=== PATIENT | female | born 1945 | race Caucasian/White ===

== ENCOUNTER → 2020-02-16 12:36 | Outpatient (CLI) | payer OTHER, MEDICARE, SELFPAY ==
--- NOTE | 2020-02-16 12:38 | DI.US.S_ITS ---
PROCEDURE: US ABDOMEN COMPLETE INDICATIONS: abdominal discomfort/gas pain TECHNIQUE: Real-time scanning was performed of the abdominal and retroperitoneal organs, with image documentation. COMPARISON: None. FINDINGS: Liver: Liver is normal in size and homogeneous in echotexture. Gallbladder: No findings of gallstones or sludge are seen. The gallbladder wall is not thickened, measuring 3 mm or less. No specific pericholecystic fluid is seen. The sonographic Verdin sign is negative. Biliary ducts: Intrahepatic bile ducts are non-dilated. Extrahepatic bile duct caliber measures 3 mm. Normal is 6-7 mm or less in diameter, or 10 mm or less post-cholecystectomy. Pancreas: Not well seen. Spleen: Spleen is normal in size and homogeneous in echotexture. Kidneys: Kidneys are normal in size and echotexture. Right kidney measures 9.6 cm long; left kidney measures 9.6 cm long. No hydronephrosis or nephrolithiasis. No solid masses. Aorta: Visualized aorta is normal in caliber at less than 3 cm. Iliacs: Proximal common iliac arteries are normal in caliber at less than 2.5 cm. IVC: Intrahepatic inferior vena cava is patent. Miscellaneous: No free abdominal fluid. IMPRESSION: Normal ultrasound for age. The gallbladder demonstrates a normal sonographic appearance. No biliary dilatation is seen. Dictated by: Yung Enriquez M.D. on 02/16/2020 at 16:38 Approved by: Yung Enriquez M.D. on 02/16/2020 at 16:39
--- NOTE | 2020-02-16 12:38 | DI.RAD.S_ITS ---
PROCEDURE: XR DEXA AXIAL SKELETON INDICATIONS: menopausal, osteopenia COMPARISON: None. FINDINGS: This blank DEXA report has been sent in error by the PACS system. The correct and complete report will be forthcoming in 1-2 days. Thank you for your patience and understanding. Dictated by: Loretta Jarvis MD, PhD on 02/16/2020 at 17:10 Approved by: Loretta Jarvis MD, PhD on 02/16/2020 at 17:10
== END ==
PROVIDERS: PCP Nurse Practitioner; Referring Provider Nurse Practitioner; Visit Provider Nurse Practitioner
DX: M85.88 Other specified disorders of bone density and structure, other site (principal); Z78.0 Asymptomatic menopausal state; N95.8 Other specified menopausal and perimenopausal disorders; R14.1 Gas pain; R10.9 Unspecified abdominal pain
CPT/HCPCS: 76700; 77080

== ENCOUNTER → 2020-02-17 13:07 | Outpatient (CLI) | payer MEDICARE, OTHER, SELFPAY ==
[2020-02-20 08:11] LABS: Fecal Immunochemical Test Negative (Negative)
== END ==
PROVIDERS: PCP Nurse Practitioner; Referring Provider Nurse Practitioner; Visit Provider Nurse Practitioner
DX: Z12.11 Encounter for screening for malignant neoplasm of colon (principal); R14.1 Gas pain
CPT/HCPCS: 82274

== ENCOUNTER → 2020-03-01 12:44 | Outpatient (CLI) | payer MEDICARE, OTHER, SELFPAY | PROVIDERS: PCP Nurse Practitioner; Referring Provider Nurse Practitioner; Visit Provider Nurse Practitioner | DX: R14.0 Abdominal distension (gaseous) (principal); R14.2 Eructation; R19.8 Other specified symptoms and signs involving the digestive system and abdomen | CPT/HCPCS: 87177 ==

== ENCOUNTER → 2020-03-28 11:11 | Outpatient (CLI) | payer MEDICARE, OTHER, SELFPAY ==
[2020-03-28 13:02] LABS: COVID19 -Nasal RAPID POSITIVE (Negative)
== END ==
PROVIDERS: PCP Nurse Practitioner; Visit Provider Nurse Practitioner
DX: U07.1 COVID-19 (principal)
CPT/HCPCS: 87635

== ENCOUNTER → 2020-05-21 11:12 | Outpatient (CLI) | payer MEDICARE, OTHER, SELFPAY | PROVIDERS: PCP Nurse Practitioner; Referring Provider Nurse Practitioner; Visit Provider Nurse Practitioner | DX: Z12.31 Encounter for screening mammogram for malignant neoplasm of breast (principal); R14.1 Gas pain; Z53.9 Procedure and treatment not carried out, unspecified reason ==

== ENCOUNTER → 2020-05-23 10:51 | Outpatient (CLI) | payer MEDICARE, OTHER, SELFPAY ==
[2020-05-23 11:52] LABS: Alanine Aminotransferase 19 IU/L (<35); Albumin 4.3 g/dL (3.5-5.0); Albumin Globulin Ratio 1.5 (1.0-2.8); Alkaline Phosphatase 60 U/L (38-126); Aspartate Aminotransferase 21 IU/L (14-36); BUN Creatinine Ratio 33.3 (6-22); Bilirubin Total 0.6 mg/dL (0.2-1.3); Blood Urea Nitrogen 24 mg/dL (7-17); Calcium 10.3 mg/dL (8.4-10.2); Carbon Dioxide 31 mmol/L (22-32); Chloride 104 mmol/L (98-107); Estimated Glomerular Filt Rate > 60.0 mL/min (>60); Globulin 2.9 g/dL (1.7-4.1); Glucose 111 mg/dL (80-110); HEMOLYSIS < 15 (0-50); Potassium 4.5 mmol/L (3.4-5.1); Sodium 137 mmol/L (137-145); Total Protein 7.2 g/dL (6.3-8.2)
[2020-05-23 12:31] LABS: Thyroid Stimulating Hormone 1.15 uIU/mL (0.47-4.68)
== END ==
PROVIDERS: PCP Nurse Practitioner; Referring Provider Nurse Practitioner; Visit Provider Nurse Practitioner
DX: I10 Essential (primary) hypertension (principal); E06.3 Autoimmune thyroiditis; Z79.899 Other long term (current) drug therapy
CPT/HCPCS: 36415; 80053; 84443

== ENCOUNTER → 2020-05-29 14:43 | Outpatient (CLI) | payer OTHER, MEDICARE, SELFPAY ==
--- NOTE | 2020-05-29 14:45 | DI.US.S_ITS ---
PROCEDURE: US CAROTID DOPPLER BI INDICATIONS: BILATERAL CAROTID BRUITS TECHNIQUE: Color and pulse Doppler interrogation was performed of both carotid systems, with image documentation and velocity measurements. COMPARISON: None. FINDINGS: Stenosis calculations are based on SRU (Society of Radiologists in Ultrasound) criteria. Right side: Brachial blood pressure: 154/86 mm Hg. Common carotid artery peak systolic velocity: 100 cm/sec. Internal carotid artery peak systolic velocity: 137 cm/sec. Internal carotid artery end diastolic velocity: 40 cm/sec. External carotid artery peak systolic velocity: 216 cm/sec. ICA/CCA peak systolic ratio: 1.4 . Steve scale imaging description: Calcified plaque at the bifurcation Percent internal carotid artery stenosis: 50-69% . Vertebral artery: Flow direction is antegrade. Left side: Brachial blood pressure: 145/89 mm Hg. Common carotid artery peak systolic velocity: 100 cm/sec. Internal carotid artery peak systolic velocity: 87 cm/sec. Internal carotid artery end diastolic velocity: 25 cm/sec. External carotid artery peak systolic velocity: 107 cm/sec. ICA/CCA peak systolic ratio: 0.9 . Steve scale imaging description: Calcified plaque at the bifurcation Percent internal carotid artery stenosis: Less than 50% . Vertebral artery: Flow direction is antegrade. IMPRESSION: 50-69% right ICA stenosis Less than 50% left ICA stenosis Dictated by: Jose Whitlock M.D. on 05/29/2020 at 16:52 Approved by: Jose Whitlock M.D. on 05/29/2020 at 16:54
== END ==
PROVIDERS: PCP Nurse Practitioner; Referring Provider Nurse Practitioner; Visit Provider Nurse Practitioner
DX: I65.23 Occlusion and stenosis of bilateral carotid arteries (principal); R09.89 Other specified symptoms and signs involving the circulatory and respiratory systems
CPT/HCPCS: 93880

== ENCOUNTER → 2020-08-10 15:09 | Outpatient (CLI) | payer MEDICARE, OTHER, SELFPAY ==
--- NOTE | 2020-08-10 | DI.MG.S_ITS ---
BILATERAL DIGITAL SCREENING MAMMOGRAM 3D/2D WITH CAD: 08/10/2020 CLINICAL: Routine screening. Family history of breast cancer. Comparison is made to exams dated: 01/27/2019 mammogram, 12/08/2017 mammogram, and 10/23/2016 mammogram - outside location. The tissue of both breasts is predominantly fatty. Current study was also evaluated with a Computer Aided Detection (CAD) system. No significant masses, calcifications, or other findings are seen in either breast. There has been no significant interval change. IMPRESSION: NEGATIVE There is no mammographic evidence of malignancy. A 1 year screening mammogram is recommended. This exam was interpreted at Station ID: [id number]. NOTE: For mammograms, a report in lay terms will be sent to the patient. Approximately 15% of breast malignancies will not be visualized mammographically. In the management of a palpable breast mass, a negative mammogram must not discourage biopsy of a clinically suspicious lesion. Electronically Signed By: Crescencio young/stephani:08/13/2020 07:40:46 letter sent: Normal Exam ACR BI-RADS Category 1: Negative [id number]
== END ==
PROVIDERS: PCP Nurse Practitioner; Referring Provider Nurse Practitioner; Visit Provider Nurse Practitioner
DX: Z12.31 Encounter for screening mammogram for malignant neoplasm of breast (principal); Z80.3 Family history of malignant neoplasm of breast
CPT/HCPCS: 77063; 77067

== ENCOUNTER → 2020-09-28 10:03 | Outpatient (CLI) | payer MEDICARE, OTHER, SELFPAY ==
[2020-09-28 12:31] LABS: Alanine Aminotransferase 19 IU/L (<35); Albumin Globulin Ratio 1.5 (1.0-2.8); Alkaline Phosphatase 53 U/L (38-126); Aspartate Aminotransferase 25 IU/L (14-36); BUN Creatinine Ratio 34.6 (6-22); Bilirubin Total 0.7 mg/dL (0.2-1.3); Blood Urea Nitrogen 27 mg/dL (7-17); Calcium 10.2 mg/dL (8.4-10.2); Carbon Dioxide 26 mmol/L (22-32); Chloride 106 mmol/L (98-107); Cholesterol 194 mg/dL (140-199); Estimated Glomerular Filt Rate > 60.0 mL/min (>60); Globulin 2.6 g/dL (1.7-4.1); Glucose 100 mg/dL (80-110); HDL Cholesterol 89 mg/dL (40-60); HEMOLYSIS < 15 (0-50); LDL Cholesterol Calculated 92 mg/dL (<100); Potassium 4.7 mmol/L (3.4-5.1); Sodium 138 mmol/L (137-145); Total Protein 6.6 g/dL (6.3-8.2); Triglycerides 67 mg/dL (35-150)
== END ==
PROVIDERS: PCP Nurse Practitioner; Referring Provider Nurse Practitioner; Visit Provider Nurse Practitioner
DX: E78.5 Hyperlipidemia, unspecified (principal); I65.29 Occlusion and stenosis of unspecified carotid artery; Z79.899 Other long term (current) drug therapy
CPT/HCPCS: 36415; 80053; 80061

== ENCOUNTER → 2020-10-25 11:55 | Outpatient (CLI) | payer OTHER, MEDICARE, SELFPAY ==
--- NOTE | 2020-10-25 12:01 | DI.RAD.S_ITS ---
PROCEDURE: XR WRIST RT MIN 3V INDICATIONS: worsening wrist pain TECHNIQUE: 3 views of the wrist were acquired. COMPARISON: None. FINDINGS: Bones: No acute fracture. Severe 1st CMC and triscaphe joint degeneration. Scattered degenerative subchondral sclerosis and spurring. Soft tissues: No suspicious soft tissue calcifications. IMPRESSION: Right wrist osteoarthritis as above. No definite soft tissue abnormalities to correlate with the reported palpable mass. Consider further evaluation with contrast enhanced MRI as clinically necessary. Dictated by: Jose Whitlock M.D. on 10/25/2020 at 13:25 Approved by: Jose Whitlock M.D. on 10/25/2020 at 13:27
== END ==
PROVIDERS: PCP Nurse Practitioner; Referring Provider Nurse Practitioner; Visit Provider Nurse Practitioner
DX: M25.531 Pain in right wrist (principal); M19.031 Primary osteoarthritis, right wrist
CPT/HCPCS: 73110

== ENCOUNTER → 2020-11-05 13:20 | Outpatient (CLI) | payer OTHER, MEDICARE, SELFPAY ==
--- NOTE | 2020-11-05 13:21 | DI.MRI.S_ITS ---
PROCEDURE: MR WRIST RT WO CON INDICATIONS: Worsening wrist pain TECHNIQUE: Noncontrast coronal proton density fast spin echo and T2 fast spin echo with fat saturation; coronal 3-D gradient echo, axial T1 spin echo and T2 fast spin echo with fat saturation, sagittal T1 spin echo through the wrist. COMPARISON: None. FINDINGS: Image quality: Degraded by motion artifact. Bones and cartilage: There is diffuse carpal joint degeneration, subchondral cystic change and marrow edema. No evidence of avascular necrosis. No definite acute fracture is seen. Severe 1st CMC and triscaphe joint degeneration Carpal ligaments: The scapholunate and lunotriquetral ligaments appear intact. In the absence of intra-articular contrast, the extrinsic carpal ligaments are not well identified. On sagittal images, the pisohamate ligament appears intact. Triangular fibrocartilage complex: The triangular fibrocartilage appears intact. The adjacent meniscal homolog appears normal in the absence of intra-articular contrast. The extensor carpi ulnaris tendon is normal in location and morphology. Tendons and soft tissues: There is mild T2 hyperintensity surrounding the flexor pollicis longus and flexor digitorum profundus (index finger slip) suggestive of mild tenosynovitis. There is also flexor carpi ulnaris tenosynovitis. The ulnar nerve appears normal within Guyon's canal. All six extensor tendon compartments demonstrate normal morphology, without pathologic tendon sheath fluid. No soft tissue ganglion cysts. The muscle signal intensity appears within normal limits. IMPRESSION: Severely motion degraded examination. Diffuse osteoarthritis as above, most pronounced at the 1st CMC and triscaphe joints. Flexor carpi ulnaris tenosynovitis Mild tenosynovitis involving the flexor pollicis longus and index finger slip of the flexor digitorum profundus. Dictated by: Jose Whitlock M.D. on 11/05/2020 at 15:04 Approved by: Jose Whitlock M.D. on 11/05/2020 at 15:12
== END ==
PROVIDERS: PCP Nurse Practitioner; Referring Provider Nurse Practitioner; Visit Provider Nurse Practitioner
DX: M25.531 Pain in right wrist (principal); M18.11 Unilateral primary osteoarthritis of first carpometacarpal joint, right hand; M19.031 Primary osteoarthritis, right wrist; M65.831 Other synovitis and tenosynovitis, right forearm; M65.841 Other synovitis and tenosynovitis, right hand
CPT/HCPCS: 73221

== ENCOUNTER 2021-01-01 14:36 | Emergency (ER) | payer OTHER, MEDICARE, SELFPAY ==
[2021-01-01] VITALS (11 sets, daily range): BP systolic 175–231; BP diastolic 88–107; PULSE 70–84; RESP 10–23; TEMP 36.6; O2SAT 95–99; BMI 25.7
--- NOTE | 2021-01-01 14:57 | DI.RAD.S_ITS ---
PROCEDURE: XR CHEST 1V INDICATIONS: chest pain TECHNIQUE: One view of the chest was acquired. COMPARISON: None. FINDINGS: Surgical changes and devices: None. Lungs and pleura: Lungs are clear. No pleural effusions or pneumothorax. Mediastinum: Mediastinal contours appear normal. Heart size is normal. Bones and chest wall: No suspicious bony lesions. Overlying soft tissues appear unremarkable. IMPRESSION: No acute cardiopulmonary process demonstrated radiographically. Dictated by: Sriram Lott M.D. on 01/01/2021 at 15:07 Approved by: Sriram Lott M.D. on 01/01/2021 at 15:11
[2021-01-01 15:23] LABS: Add Manual Diff / Slide Review NO; Basophils Absolute Auto 100 /uL (0-100); Basophils Percent Auto 1.1 % (0-2); Eosinophils Absolute Auto 100 /uL (0-450); Eosinophils Percent Auto 1.6 % (2-4); Hematocrit 39.1 % (36-46); Hemoglobin 12.8 g/dL (12.0-16.0); Lymphocytes Absolute Auto 1300 /uL (1100-4500); Lymphocytes Percent Auto 20.8 % (25-40); Mean Corpuscular HGB Conc 32.7 % (30-36); Mean Corpuscular Hemoglobin 29.3 PG (26-34); Mean Corpuscular Volume 89.5 fL (80-100); Monocytes Absolute Auto 600 /uL (0-900); Monocytes Percent Auto 9.2 % (3-14); Neutrophils Absolute Auto 4100 /uL (1500-7000); Neutrophils Percent Auto 67.3 % (50-75); Platelet Count 256 X10^3/uL (150-400); Red Blood Cell Count 4.37 X10^6/uL (4.0-5.2)
[2021-01-01 15:24] LABS: Alanine Aminotransferase 18 IU/L (<35); Albumin 4.7 g/dL (3.5-5.0); Albumin Globulin Ratio 1.7 (1.0-2.8); Alkaline Phosphatase 66 U/L (38-126); Aspartate Aminotransferase 25 IU/L (14-36); BUN Creatinine Ratio 26.8 (6-22); Bilirubin Total 0.7 mg/dL (0.2-1.3); Blood Urea Nitrogen 19 mg/dL (7-17); Calcium 10.7 mg/dL (8.4-10.2); Carbon Dioxide 27 mmol/L (22-32); Chloride 104 mmol/L (98-107); Creatine Kinase 79 U/L (30-135); Estimated Glomerular Filt Rate > 60.0 mL/min (>60); Globulin 2.8 g/dL (1.7-4.1); Glucose 103 mg/dL (80-110); HEMOLYSIS < 15 (0-50); Lipase 160 U/L (23-300); Potassium 4.1 mmol/L (3.4-5.1); Sodium 140 mmol/L (137-145); Total Protein 7.5 g/dL (6.3-8.2)
[2021-01-01 15:36] LABS: Troponin I < 0.012 ng/mL (0.01-0.034)
--- NOTE | 2021-01-01 15:49 | ED.ARRPALP ---
HPI - Arrhythmia/Palpitations General Chief Complaint: Arrhythmia/Palpitations Stated Complaint: heart palpatations constant, dizzy, primary-sent Time Seen by Provider: 01/01/21 15:48 History of Present Illness HPI narrative: 75-year-old female former smoker with history of hypertension, hyperlipidemia and Jose's presents with her in the chief complaint of palpitations for between 1 and 2 weeks. She denies any chest pain or significant fatigue. She denies nausea, vomiting or diarrhea. She states that by and large her medication regimen and diet are unchanged. She states she took her blood pressure medications as directed this morning. She did start taking naltrexone for treatment of cutaneous manifestation of Jose's relatively recently and mentions there is some concern about it playing a role on the effectiveness of her thyroid medications. She denies any fever or chills and is otherwise well and free of complaint Related Data Home Medications Medication Instructions Recorded Confirmed aspirin 81 mg tablet,delayed 81 mg PO DAILY 02/13/20 10/25/20 release (Adult Aspirin Regimen) clobetasol 0.05 % topical cream 1 applic TOPICAL DAILY PRN 02/13/20 10/25/20 famotidine 20 mg tablet (Pepcid AC) 20 mg PO DAILY PRN 02/13/20 10/25/20 fluocinonide 0.05 % topical 1 applic TOPICAL BID-QID PRN 02/13/20 10/25/20 solution ketoconazole 2 % shampoo 1 applic TOPICAL 2XW 02/13/20 10/25/20 ketoconazole 2 % topical cream 1 applic TOPICAL DAILY PRN 02/13/20 10/25/20 calcium citrate 315 mg 2 tab PO BID tab 05/23/20 10/25/20 calcium-vitamin D3 6.25 mcg (250 unit) tablet (Citracal + Vitamin D Maximum) Previous Rx's Medication Instructions Recorded carvedilol 12.5 mg tablet 12.5 mg PO BID #180 tab 02/13/20 calcium carb,cit ER 600 mg-vit D3 1 tab PO BID #180 tab 05/23/20 12.5 mcg (500 unit) tablet,ext.rel (Citracal-D3 Slow Release) losartan 25 mg tablet 25 mg PO DAILY #90 tab 05/23/20 losartan 50 mg tablet 50 mg PO DAILY #90 tab 05/23/20 thyroid (pork) 15 mg tablet See Rx Instructions PO DAILY #90 09/21/20 (Cascade Thyroid) tab thyroid (pork) 60 mg tablet See Rx Instructions PO DAILY #90 09/21/20 (Cascade Thyroid) tab Low Dose Naltrexone See Rx Instructions .ROUTE 10/08/20 .COMPLEX #1 packet atorvastatin 20 mg tablet 20 mg PO BEDTIME #90 tab 10/08/20 Allergies Allergy/AdvReac Type Severity Reaction Status Date / Time No Known Drug Allergies Allergy Unverified 10/25/20 11:38 Review of Systems Review of Systems Narrative: GENERAL: Denies chills, fatigue, malaise, fever, sweats. HEENT: Denies sinus pain, ear pain, sore throat, difficulty swallowing, dizziness. RESPIRATORY: Denies dyspnea, cough, wheezing, hemoptysis, sputum. CARDIOVASCULAR: See HPI GASTROINTESTINAL: Denies nausea, vomiting, abdominal pain, diarrhea, constipation, melena. : Denies dysuria, frequency, incontinence, hematuria, urinary retention. MUSCULOSKELETAL: denies weakness, joint pain, or bony pain SKIN: Denies rash, skin lesions, or other NEUROLOGIC: Denies weakness, headache, numbness, change in speech, confusion, seizures, incoordination. PSYCHIATRIC: No concerning psychosocial issues. 12 point review of systems is negative except for those stated above Patient History Medical History Chicken pox Eczema (~1952) Jose's disease (~2010) Hypertension (~2007) Low back pain (~2011) Measles Mumps Osteopenia (~2011) Plantar warts (~1959) Surgical History Anesthesia History of hernia surgery (~2009) Family History Father History of heart disease Mother Vascular disease Brother Parkinson's disease Grandmother Cancer Social History Smoking Status: Former smoker Smoking Status: Former smoker Alcohol type: wine Substance Use Type: does not use Exam Narrative Exam Narrative: GENERAL: [75] year old patient appears stated age. Well-developed patient, in mild distress. HEAD: Atraumatic. Normocephalic. EYES: Pupils equal round and reactive. Extraocular motions intact. No scleral icterus. No injection or drainage. ENT: Nose without bleeding, purulent drainage. Throat without erythema, tonsillar hypertrophy or exudate. Airway patent. NECK: Trachea midline. Non tender CARDIOVASCULAR: Regular rate and rhythm without murmurs, gallops, or rubs. RESPIRATORY: Clear to auscultation. Breath sounds equal bilaterally. No wheezes, rales, or rhonchi. GASTROINTESTINAL: Abdomen soft, non-tender, nondistended. EXTREMITIES: No edema or joint tenderness. BACK: Nontender without deformity or crepitance. No flank tenderness. NEURO: AOx3. SKIN: No rash or erythema of visible areas Initial Vital Signs Initial Vital Signs: Vital Signs Temperature 97.8 F 01/01/21 14:51 Pulse Rate 82 01/01/21 14:51 Respiratory Rate 16 01/01/21 14:51 Blood Pressure 231/103 H 01/01/21 14:51 Pulse Oximetry 99 01/01/21 14:51 Course Orders Ordered: ED Orders 01/01/21 14:52 EKG-12 Lead Routine 01/01/21 14:57 XR chest 1V Stat 01/01/21 15:03 Complete Blood Count AUTO DIFF Stat Comprehensive Metabolic Panel Stat Free T4, Direct Thyroxine Stat Lipase Stat TSH w/ Reflex to FT4 Stat Troponin & CK Cardiac Panel Stat Discontinued Medications Carvedilol (Carvedilol 12.5 Mg Tablet) 25 mg PO NOW ONE Stop: 01/01/21 16:59 Last Admin: 01/01/21 17:09 Dose: 25 mg Documented by: YAZAN Vital Signs Vital signs: Vital Signs - 8 hr 01/01/21 14:51 01/01/21 15:39 01/01/21 15:41 Temperature 97.8 F Pulse Rate 82 84 83 Respiratory Rate 16 21 Blood Pressure 231/103 H 223/107 H Pulse Oximetry 99 98 99 01/01/21 16:00 01/01/21 16:30 01/01/21 17:00 Temperature Pulse Rate 70 76 76 Respiratory Rate 10 L 23 13 Blood Pressure 213/103 H 201/107 H 220/100 H Pulse Oximetry 96 98 98 01/01/21 17:09 01/01/21 17:23 01/01/21 17:30 Temperature Pulse Rate 74 79 74 Respiratory Rate 23 12 Blood Pressure 220/100 H 208/96 H 193/88 H Pulse Oximetry 99 96 MDM - Arrhythmia/Palpitations Lab Data Result diagrams: 01/01/21 15:03 01/01/21 15:03 Labs: Lab Results 01/01/21 01/01/21 01/01/21 Range/Units 15:03 15:03 15:03 WBC 6.0 (4.5-11.0) X10^3/uL RBC 4.37 (4.0-5.2) X10^6/uL Hgb 12.8 (12.0-16.0) g/dL Hct 39.1 (36-46) % MCV 89.5 (80-100) fL MCH 29.3 (26-34) PG MCHC 32.7 (30-36) % RDW 13.0 (11.6-14.8) % Plt Count 256 (150-400) X10^3/uL Neut % (Auto) 67.3 (50-75) % Lymph % (Auto) 20.8 L (25-40) % [place] % (Auto) 9.2 (3-14) % Eos % (Auto) 1.6 L (2-4) % Baso % (Auto) 1.1 (0-2) % Neut # (Auto) 4100 (9071-0485) /uL Lymph # (Auto) 1300 (4087-9730) /uL [place] # (Auto) 600 (0-900) /uL Eos # (Auto) 100 (0-450) /uL Baso # (Auto) 100 (0-100) /uL Sodium 140 (137-145) mmol/L Potassium 4.1 (3.4-5.1) mmol/L Chloride 104 (98-107) mmol/L Carbon Dioxide 27 (22-32) mmol/L BUN 19 H (7-17) mg/dL Creatinine 0.71 (0.52-1.04) mg/dL Estimated GFR > 60.0 (>60) mL/min BUN/Creatinine Ratio 26.8 H (6-22) Glucose 103 (80-110) mg/dL Calcium 10.7 H (8.4-10.2) mg/dL Total Bilirubin 0.7 (0.2-1.3) mg/dL AST 25 (14-36) IU/L ALT 18 (<35) IU/L Alkaline Phosphatase 66 (38-126) U/L Total Creatine Kinase 79 (30-135) U/L CK-MB (CK-2) TNP CK-MB (CK-2) Rel Index TNP Troponin I < 0.012 (0.01-0.034) ng/mL Total Protein 7.5 (6.3-8.2) g/dL Albumin 4.7 (3.5-5.0) g/dL Globulin 2.8 (1.7-4.1) g/dL Albumin/Globulin Ratio 1.7 (1.0-2.8) Lipase 160 (23-300) U/L TSH 0.35 L (0.47-4.68) uIU/mL Free T4 0.88 (0.78-2.19) ng/dL MDM Narrative Medical decision making narrative: Patient presents with palpitations for the past week or so. She denies any chest pain is not dizzy or lightheaded. She has had increasing blood pressure over that time despite using her medications as directed. She has a very reassuring physical exam. She is given carvedilol 25 mg p.o. and blood pressure drops to the 170s and heart rate remains in the mid 70s. She tolerates this quite well and states that her symptoms have completely improved. She has no headache or blurred vision or chest pain or shortness of breath. Other labs are very reassuring. Return precautions given and questions answered to her apparent satisfaction Discharge Plan Departure Patient Disposition: Home Clinical Impression: Heart palpitations Hypertension Qualifiers: Hypertension type: unspecified Qualified Code(s): I10 - Essential (primary) hypertension Instructions: Arrhythmias, Essential Hypertension Activity Restrictions/Additional Instructions: *You have been diagnosed with [palpitations and hypertension] *What to do: *As we discussed, please increase your dose of Carvedilol from 12.5mg twice daily to 25mg twice daily. Otherwise, please continue to take your regular medications as directed. [ ] New medication prescriptions sent to your pharmacy: [ ] [ ] New medication written as a paper prescription [ x] No new medications given *Please follow up with your primary care provider in 2-3 days, call for an appointment. Let them know you were seen in the Emergency Department and that we ask that you be seen in follow up. We will electronically transmit a record of today's note if your PCP is in our system *If you do not have a primary care provider please contact the [facility] Resource line at [phone]. They will ask some questions about your medical history and help get you set up with a doctor in the community. *Return to Emergency Department if you should have any new, worsening or concerning symptoms, such as [fever greater than 101 F, shaking chills, worsening pain, persistent vomiting or other bothersome symptoms] Prescriptions: No Action calcium carb and citrate-vitD3 [Citracal-D3 Slow Release] 600 mg calcium- 500 unit tablet extended release 1 tab PO BID Qty: 180 RF: 3 losartan 50 mg tablet 50 mg PO DAILY Qty: 90 RF: 3 losartan 25 mg tablet 25 mg PO DAILY Qty: 90 RF: 3 thyroid (pork) [Cascade Thyroid] 15 mg tablet See Rx Instructions PO DAILY Qty: 90 RF: 3 thyroid (pork) [Cascade Thyroid] 60 mg tablet See Rx Instructions PO DAILY Qty: 90 RF: 3 carvedilol 12.5 mg tablet 12.5 mg PO BID Qty: 180 RF: 3 aspirin [Adult Aspirin Regimen] 81 mg tablet,delayed release (DR/EC) 81 mg PO DAILY RF: 0 ketoconazole 2 % shampoo 1 applic topical 2XW RF: 0 fluocinonide 0.05 % solution 1 applic topical BID-QID PRNRF: 0 ketoconazole 2 % cream 1 applic topical DAILY PRN (Reason: rash under breast) RF: 0 clobetasol 0.05 % cream 1 applic topical DAILY PRN (Reason: eczema) RF: 0 famotidine [Pepcid AC] 20 mg tablet 20 mg PO DAILY PRNRF: 0 calcium citrate-vitamin D3 [Citracal + D Maximum] 315 mg-6.25 mcg (250 unit) tablet 2 tab PO BID RF: 0 atorvastatin 20 mg tablet 20 mg PO BEDTIME Qty: 90 RF: 3 Low Dose Naltrexone See Rx Instructions .ROUTE .COMPLEX Qty: 1 RF: 2 Referrals: Loreta Betancourt ARNP [Primary Care Provider] -
--- NOTE | 2021-01-01 15:50 | PC.NURSE ---
Patient c/o palpitations x 2+ weeks. Patient states she recently added a new medication to her daily routine, Naltrexone. She states Naltrexone may be interfering with her thyroid meds. Denies other symptoms, states otherwise healthy. Family at the bedside.
[2021-01-01 16:36] LABS: TSH w/ Reflex to FT4 0.35 uIU/mL (0.47-4.68)
[2021-01-01] MEDS: carvediloL 12.5 MG TABLET 25 MG PO (17:09)
[2021-01-01 17:35] LABS: Free T4, Direct Thyroxine 0.88 ng/dL (0.78-2.19)
== END 2021-01-01 18:35 | disposition home or self-care (01) ==
PROVIDERS: Emergency Provider Emergency Medicine; PCP Nurse Practitioner
DX: R00.2 Palpitations (principal); I10 Essential (primary) hypertension
CPT/HCPCS: 36415; 71045; 80053; 82550; 83690; 84439; 84443; 84484; 85025; 93005; 99284

== ENCOUNTER → 2021-01-11 15:17 | Outpatient (CLI) | payer OTHER, MEDICARE, SELFPAY ==
--- NOTE | 2021-01-11 15:18 | DI.RAD.S_ITS ---
PROCEDURE: XR HIP W PEL IF DONE ANUPAMA MIN 4V INDICATIONS: Bilateral hip pain, in PT and therapist requested imaging TECHNIQUE: AP pelvis with lateral view(s) of the right and left hip(s). COMPARISON: None. FINDINGS: Bones: No fractures or dislocations. Pelvic ring appears intact. No suspicious bony lesions. Moderate to severe asymmetric narrowing of the left hip joint with periarticular osteophyte formation and there is mild narrowing on the right. Degenerative disc and facet disease involves the inferior lumbar spine. Soft tissues: The visualized bowel gas pattern is normal. No suspicious soft tissue calcifications. IMPRESSION: Moderate to severe asymmetric left hip joint degeneration. Dictated by: Rupert Christie RRA Interpreted: Severiano Posada MD on 01/11/2021 at 15:34 Transcribed by: MARIA DEL CARMEN on 01/11/2021 at 15:39 Approved by: Severiano Posada M.D. on 01/11/2021 at 16:52
== END ==
PROVIDERS: PCP Nurse Practitioner; Referring Provider Nurse Practitioner; Visit Provider Nurse Practitioner
DX: M25.551 Pain in right hip (principal); M25.552 Pain in left hip; M16.12 Unilateral primary osteoarthritis, left hip
CPT/HCPCS: 73522

== ENCOUNTER → 2021-02-02 11:22 | Outpatient (CLI) | payer OTHER, MEDICARE, SELFPAY ==
[2021-02-02 12:31] LABS: Add Manual Diff / Slide Review NO; Basophils Absolute Auto 0 /uL (0-100); Basophils Percent Auto 0.6 % (0-2); Eosinophils Absolute Auto 100 /uL (0-450); Hemoglobin 12.6 g/dL (12.0-16.0); Lymphocytes Absolute Auto 900 /uL (1100-4500); Lymphocytes Percent Auto 13.4 % (25-40); Mean Corpuscular HGB Conc 33.2 % (30-36); Mean Corpuscular Hemoglobin 29.4 PG (26-34); Mean Corpuscular Volume 88.6 fL (80-100); Monocytes Absolute Auto 500 /uL (0-900); Monocytes Percent Auto 7.5 % (3-14); Neutrophils Absolute Auto 5000 /uL (1500-7000); Neutrophils Percent Auto 77.5 % (50-75); Platelet Count 226 X10^3/uL (150-400); Red Blood Cell Count 4.29 X10^6/uL (4.0-5.2); Red Cell Distribution Width 12.8 % (11.6-14.8); White Blood Cell Count 6.5 X10^3/uL (4.5-11.0)
[2021-02-02 12:50] LABS: Alanine Aminotransferase 17 IU/L (<35); Albumin 4.3 g/dL (3.5-5.0); Albumin Globulin Ratio 1.7 (1.0-2.8); Alkaline Phosphatase 54 U/L (38-126); Aspartate Aminotransferase 21 IU/L (14-36); BUN Creatinine Ratio 31.6 (6-22); Bilirubin Total 0.8 mg/dL (0.2-1.3); Blood Urea Nitrogen 25 mg/dL (7-17); Calcium 10.1 mg/dL (8.4-10.2); Carbon Dioxide 26 mmol/L (22-32); Chloride 102 mmol/L (98-107); Cholesterol 146 mg/dL (140-199); Estimated Glomerular Filt Rate > 60.0 mL/min (>60); Globulin 2.5 g/dL (1.7-4.1); Glucose 112 mg/dL (80-110); HDL Cholesterol 90 mg/dL (40-60); HEMOLYSIS < 15 (0-50); LDL Cholesterol Calculated 43 mg/dL (<100); Potassium 4.5 mmol/L (3.4-5.1); Sodium 135 mmol/L (137-145); Total Protein 6.8 g/dL (6.3-8.2); Triglycerides 66 mg/dL (35-150)
[2021-02-02 13:03] LABS: Free T3, Triiodothyronine Free 4.91 pg/mL (2.77-5.27); Free T4, Direct Thyroxine 0.88 ng/dL (0.78-2.19); T4 Total Thyroxine 5.55 ug/dL (5.5-11.0)
[2021-02-02 13:10] LABS: Appearance Urine UA CLEAR; Bilirubin Urine UA NEGATIVE (NEGATIVE); Color Urine UA YELLOW; Glucose Urine UA NEGATIVE (Negative); Ketones Urine UA NEGATIVE (NEGATIVE); Leukocyte Esterase Urine UA NEGATIVE (NEGATIVE); Nitrite Urine UA NEGATIVE (Negative); Occult Blood Urine UA NEGATIVE (Negative); Protein Urine UA NEGATIVE (Negative); Specific Gravity Urine UA <=1.005 (1.000-1.035); Urobilinogen Urine UA 0.2 E.U./dL (0.2)
[2021-02-02 13:11] LABS: pH Urine UA 6.5 (4.5-8.0)
[2021-02-02 13:16] LABS: Thyroid Stimulating Hormone 3.26 uIU/mL (0.47-4.68)
[2021-02-02 13:29] LABS: Bacteria Urine None Seen; Culture Indicated Urine Cult Not Indicated; RBC Urine None Seen (0-5/HPF); Urine Comments Microscopic Normal; WBC Urine None Seen (0-5/HPF)
[2021-02-02 14:18] LABS: Hemoglobin A1C% w Est Avg Glu 5.4 % (4.0-6.0)
[2021-02-03 09:29] LABS: Thyroid Peroxidase Antibodies 431 IU/mL (0-34); Triiodothyronine T3 Total 126 ng/dL (71-180)
[2021-02-07 16:36] LABS: Triiodothyronine T3 Reverse 14.7 ng/dL (9.2-24.1)
== END ==
PROVIDERS: PCP Nurse Practitioner; Referring Provider Orthopaedic Surgery; Visit Provider Orthopaedic Surgery
DX: Z01.818 Encounter for other preprocedural examination (principal); I65.29 Occlusion and stenosis of unspecified carotid artery; I10 Essential (primary) hypertension; R73.9 Hyperglycemia, unspecified; Z01.812 Encounter for preprocedural laboratory examination; N39.0 Urinary tract infection, site not specified; Z79.899 Other long term (current) drug therapy; E06.3 Autoimmune thyroiditis; R00.2 Palpitations
CPT/HCPCS: 80053; 80061; 81001; 83036; 84436; 84439; 84443; 84480; 84481; 84482; 85025; 86376

== ENCOUNTER → 2021-02-18 12:53 | Outpatient (CLI) | payer OTHER, MEDICARE, SELFPAY | PROVIDERS: PCP Nurse Practitioner; Referring Provider Orthopaedic Surgery; Visit Provider Orthopaedic Surgery | DX: Z01.818 Encounter for other preprocedural examination (principal) | CPT/HCPCS: 93005 ==

== ENCOUNTER → 2021-03-04 10:48 | Outpatient (CLI) | payer OTHER, MEDICARE, SELFPAY ==
--- NOTE | 2021-03-04 10:50 | DI.US.S_ITS ---
PROCEDURE: US THYROID INDICATIONS: PALPITATIONS, HASHIMOTOS TECHNIQUE: Real-time scanning was performed of the thyroid gland, with image documentation. COMPARISON: None. FINDINGS: Right: Thyroid lobe measures 3.4 x 1.4 x 1.1 cm, and is homogeneous in echotexture. Left: Thyroid lobe measures 3.5 x 1.1 x 0.8 cm, and is homogenous in echotexture. Isthmus: 2.8 mm thick. No thyroid nodule identified. 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 IMPRESSION: 1. 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 2. No thyroid nodules. ACR TI-RADS definitions and recommendations: TI-RADS 1 (benign): 0 points. FNA not needed. TI-RADS 2 (not suspicious): 2 points. FNA not needed. TI-RADS 3 (mildly suspicious): 3 points. * FNA if 2.5 cm or larger, follow up if 1.5 cm or larger (at 1, 3, and 5 years). TI-RADS 4 (moderately suspicious): 4-6 points. * FNA if 1.5 cm or larger, follow up if 1 cm or larger (at 1, 2, 3, and 5 years). TI-RADS 5 (highly suspicious): 7 points or more. * FNA if 1 cm or larger, follow up if 0.5 cm or larger (every year for 5 years). Dictated by: Loretta Jarvis MD, PhD on 03/04/2021 at 13:16 Approved by: Loretta Jarvis MD, PhD on 03/04/2021 at 13:17
== END ==
PROVIDERS: PCP Nurse Practitioner; Referring Provider Nurse Practitioner; Visit Provider Nurse Practitioner
DX: E06.3 Autoimmune thyroiditis (principal); R00.2 Palpitations
CPT/HCPCS: 76536

== ENCOUNTER → 2021-04-03 09:51 | Outpatient (CLI) | payer OTHER, MEDICARE, SELFPAY ==
[2021-04-03 12:04] LABS: COVID19 -Nasal RAPID Negative (Negative)
== END ==
PROVIDERS: PCP Nurse Practitioner; Referring Provider Nurse Practitioner Family; Visit Provider Nurse Practitioner Family
DX: Z01.812 Encounter for preprocedural laboratory examination (principal); Z20.822 Contact with and (suspected) exposure to COVID-19
CPT/HCPCS: 87635

== ENCOUNTER 2021-04-04 08:15 | Observation (INO) | payer OTHER, MEDICARE, SELFPAY ==
[2021-04-01 13:37] VITALS: BMI 25.7
[2021-04-04] VITALS (14 sets, daily range): BP systolic 89–162; BP diastolic 46–85; PULSE 64–84; RESP 12–18; TEMP 36.3–38.5; O2SAT 92–98; BMI 25.7
--- NOTE | 2021-04-04 06:00 | DI.RAD.S_ITS ---
PROCEDURE: XR HIP W PEL IF DONE LT 2V INDICATIONS: prosthesis placement TECHNIQUE: 2 view(s) of the hip acquired. COMPARISON: [facility], CR, XR HIP W PEL IF DONE ANUPAMA 3TO4V, 01/11/2021, 15:18. FINDINGS: Intraoperative fluoroscopic views of total left hip replacement are seen. IMPRESSION: intraoperative fluoroscopic views of total left hip replacement. Dictated by: Kwaku Delgadillo M.D. on 04/05/2021 at 16:23 Approved by: Kwaku Delgadillo M.D. on 04/05/2021 at 16:24
[2021-04-04] MEDS: CELECOXIB 200 MG CAPSULE PO (08:56)
[2021-04-04] MEDS: ACETAMINOPHEN 325 MG TABLET 975 MG PO (08:56)
[2021-04-04] MEDS: PREGABALIN 75 MG CAPSULE PO (08:56)
[2021-04-04] MEDS: LACTATED RINGERS 1,000 ML 42 ML IV ×2 (08:59→13:32)
[2021-04-04] MEDS: VANCOMYCIN 1,000 MG/200 ML PIGGYBACK 200 MG IV (10:24)
--- NOTE | 2021-04-04 11:04 | PM.PREOP ---
Pre-operative Note COVID-19 COVID-19 status: Negative Interval Note History & Physical reviewed/Exam performed by Physician: Yes Changes to H&P: No
--- NOTE | 2021-04-04 11:05 | PM.OP.1 ---
Operative Date/Time/Diagnoses Date of procedure: 04/04/21 Time of procedure: 11:00 Pre-op diagnosis: Severe left hip osteoarthritis Post-op diagnosis: same Procedure & Clinicians Procedure: Left total hip arthroplasty anterior approach Same procedure as scheduled: Yes Indications: The patient has had progressively worsening left hip pain with radiographic changes consistent with arthritis. Non-operative management has failed and the patient has requested total hip replacement. The risks, benefits and alternatives to surgery were discussed with the patient prior to proceeding. Risks discussed included, but were not limited to, failure to relieve pain, leg length discrepancy, dislocation, stiffness, infection, nerve damage, deep venous thrombosis, pulmonary embolism, stroke, coma, heart attack, permanent paralysis and , as well as the potential need for eventual revision of the prosthetic. Surgeon: Jessica Alcantara Elevator Constructor Electric: Gurjit Roy Anesthesia Type: General and Spinal Operative Notes Findings: Severe left hip osteoarthritis, adequate stability and bone Closure Type: primary Specimen(s): none sent Prosthetic devices, grafts, tissues, transplants, or devices: Alcantara and nephew 48 mm R3 cup, anthology standard offset size 5, -3 oxinium, neutral poly liner, one screw Estimated Blood Loss (mL): 250 Blood products transfused: none Procedure in detail: The patient was brought to the operating room. Patient was carefully positioned in the supine position. Time-out was performed and antibiotics were given. Anesthesia was induced. She was positioned in the on the table in order to allow hyperextension of the hip. The leftlower extremity was prepped and draped in a standard sterile fashion. An anterior left hip incision was made 1 fingerbreadth lateral to the anterior superior iliac spine and extended distally towards the greater trochanter. Dissection was carried out through skin and subcutaneous tissues. Superficial hemostasis was achieved. The fascia over the tensor fascia vernon was defined and incised with a knife. Two Allis clamps were used to grasp the fascia. Tensor fascia vernon was retracted laterally. A gelpi retractor was placed. Dissection was carried out down along the neck. The circumflex vessels were carefully identified and cauterized with the Aqua Mantis. There was good visualization of the femoral neck. A Cobra was placed superior to the neck and the gluteus fibers were carefully stripped from that superior aspect of the capsule. A 2nd retractor was placed along the inferior aspect of the neck. The rectus insertion along the capsule was partially released. A 3rd retractor that was then gently placed over the rim of the acetabulum under the rectus. Capsule was carefully incised and released from the intertrochanteric line circumferentially superior to the mid sagittal line and inferiorly to the mid sagittal line until the lesser trochanter was palpable. A tag stitch was placed both in the superior and inferior limb of the capsular insertion. Along the acetabulum capsule was also released up to the mid sagittal 12:00 position. A portion of the labrum was resected. A saw was used to perform an osteotomy at the level of the intertrochanteric line and the junction of the superior femoral neck leaving approximately 1 finger breath of residual inferior neck above the lesser trochanter. A 2nd cut was made along the femoral neck at the base of the head and a napkin ring of neck was removed. Corkscrew was placed in the femoral head and the head was removed without difficulty. Retractors were then repositioned around the acetabulum. Residual labrum was resected and additional osteophytes were removed. A reamer that was 4 mm below the templated size was placed by hand in the acetabulum and it was reamed to centralize the acetabulum. It was then reamed up to 2 under the templated size and fluoroscopy was brought in to confirm the position of the reaming and depth of reaming. I reamed 1 under the anticipated size. A trial cup was placed and noted that it was appropriately sized and fluoroscopy confirmed position and depth. The component was open and inserted without difficulty fluoroscopic imaging was used to confirm that the cup had been adequately seated and was well positioned. It was further stabilized with a single screw. Neutral poly liner was placed. The cup was tested and noted to be stable. Attention was then directed to the femur. The femur was gently hyperextended additional capsular release was performed as needed in order to allow adequate visualization of the proximal femur with elevation of the femur. Patient was placed in a hyperextended slightly adducted position with maximum external rotation. Box osteotome was used to check for any residual neck as well as sclerotic bone along the trochanter. Clinton pepper was placed in the femur. Additional broaching was performed. Canal finder was used to determine the alignment of the canal and position. Size 1 broach was placed. The canal was then appropriately broached up to the templated size as long as there was adequate stability of the broach and serial advancement of the broach without excessive impingement. Specific attention was directed at avoiding varus attempting to direct the distal aspect of the broach more anteriorly and avoiding excessive anteversion. Trial reduction showed acceptable range of motion, good stability, no posterior impingement, denominational of leg length and appropriate lateral shuck. I also hyperflexed the hip and checked that there was no impingement anteriorly and there was good stability with flexion, adduction and internal rotation. Marcaine and Exparel were injected. The stem was placed without difficulty. Repeat trial reduction and x-ray showed acceptable overall position, length, and no evidence of the femoral fracture. Final head was placed. Wound was meticulously irrigated with normal saline. The hip was reduced and additional Exparel and Marcaine were injected. The capsule was closed with interrupted nonabsorbable sutures. The fascia of the tensor was closed with interrupted and running Vicryl. No drain was placed. Any tensor fascia vernon muscle that appeared to be contused or injured which was a minimal amount was carefully resected. Capsule around the tensor was injected with Exparel and Marcaine. The skin was closed with barbed stitches for the subcutaneous tissue and skin. We also used surgical glue. The wound was dressed sterilely. Brief Betadine soak was also used and was meticulously irrigated with normal saline. Patient was transferred to recovery room in satisfactory condition. Complications: none Post-operative Condition: stable Disposition: Acute Care Plan for aftercare: The patient will be maintained on a standard total hip replacement protocol with weight bearing as tolerated and anterior hip precautions. The patient will receive Aspirin and sequential compression devices for DVT prophylaxis. The patient will be discharged home when safe for the home environment.
[2021-04-04] MEDS: CEFAZOLIN 2 GM/20 ML SYRINGE IV ×2 (11:25→19:27)
[2021-04-04] MEDS: TRANEXAMIC ACID 1,000 MG VIAL 1000 MG INJ ×2 (11:35→13:18)
[2021-04-04] MEDS: BUPIVACAINE 0.25% (PF) 60 ML, EPINEPHrine 0.3 MG INJ (11:48)
[2021-04-04] MEDS: BUPIVACAINE LIPOSOME 266 MG/20 ML VIAL INJ (11:49)
--- NOTE | 2021-04-04 11:52 | SUR.OPER ---
Supine on padded Leggett table with bilateral legs secured in padded positioning boots and suspended in positioning spars, operative leg in traction per surgeon. Head on one pillow. Arm on non-operative side secured on padded armboard <90 degrees abduction. Arm on operative side padded and resting across chest then secured with tape over sheet. Padded perineal post in place per surgeon.
--- NOTE | 2021-04-04 12:07 | DI.RAD.S_ITS ---
PROCEDURE: XR HIP W PEL IF DONE LT 2V INDICATIONS: LEFT GONZALO TECHNIQUE: AP pelvis and lateral view of the left hip acquired. COMPARISON: [facility], [place], XR HIP W PEL IF DONE LT 2V, 04/04/2021, 13:30. FINDINGS: Bones: Patient is status post left hip arthroplasty, with hardware components in expected positions. The hip joint appears congruent. The visualized bony structures appear intact. Soft tissues: Overlying postoperative changes are noted. No suspicious soft tissue densities. IMPRESSION: Expected immediate postoperative appearance of left hip arthroplasty. Dictated by: Rupert Christie [facility] Interpreted: Salome Marcano MD on 04/04/2021 at 14:35 Transcribed by: EUGENIA on 04/04/2021 at 14:35 Approved by: Salome Marcano M.D. on 04/04/2021 at 17:35
[2021-04-04] MEDS: LACTATED RINGERS 1,000 ML 125 ML IV ×2 (15:00→22:24)
[2021-04-04] MEDS: IBUPROFEN 400 MG TABLET PO ×2 (17:36→21:27)
[2021-04-04] MEDS: ACETAMINOPHEN 325 MG TABLET 650 MG PO ×2 (17:36→21:27)
--- NOTE | 2021-04-04 18:59 | PC.NURSE ---
Pt arrived to unit at 1430 from PACU, alert but feeling groggy and sleepy allowed to rest. 02 saturation 85% on RA placed on 2LNC for support, up to 93% 02 saturation. Encouraged use of IS after dinner patient reaching 1500. LS clear, diminishe din bases. She denies pain, n/v, +CMS to BLE. Aquacell dressing to anterior L hip c/d/i. Per TUBE WORKER temp this afternoon 101.3, upon reassessment after IS use, and scheduled tylenol and ibuprofen administered temp 98.2. Pt had not yet voided at 1830, without an urge to void. Last time she reported voiding was 1000 a.m. Pt bladder scan resulted in 213ml. Notified MD Alcantara for order to straight cath. Encouraged to wait x1 hour and encourage patient to sit up on BSC. and then if unable to void patient straight. Endorsed to oncoming RN Continuous monitoring.
[2021-04-04] MEDS: DOCUSATE 100 MG CAPSULE PO (21:27)
[2021-04-04] MEDS: ATORVASTATIN 20 MG TABLET PO (21:28)
[2021-04-04] MEDS: carvediloL 12.5 MG TABLET 25 MG PO (21:29)
[2021-04-04] MEDS: ASPIRIN EC 81 MG TABLET PO (21:29)
[2021-04-04] MEDS: CALCIUM CARB/VIT D3 500/200 TABLET 1 EACH PO (21:35)
[2021-04-04] MEDS: ONDANSETRON 4 MG/2 ML INJ IV (22:19)
[2021-04-05] MEDS: IBUPROFEN 400 MG TABLET PO ×4 (00:43→13:17)
[2021-04-05 02:00] VITALS: BP 161/83; PULSE 81; RESP 18; TEMP 36.6; O2SAT 96
--- NOTE | 2021-04-05 02:44 | PC.NURSE ---
Addendum entered by Georgina Noriega R.N. 04/05/21 06:27: 0600: tolerated oob w/ 1pa w/ FWW to BSC. large amount of yellow urine. instructed on hip precautions. o2 removed, spo2 98% RA after exertion. new ice pack placed on left hip. Original Note: 2300: a/o, voices needs. 1pa bed mobility, 2pa transfer OOB to BSC. used walker and gait belt. instructed on hip precautions. reported slight dizziness upon arising, but this cleared quickly. IS at bedside, this was helpful to use prior to getting OOB. LS cta. o2 2lpm via NC at [facility] to keep sats > 90. sat on BSC for 10 min, attempted void w/ no result. straight cath after a 2nd attempt to void w/ zero results. 600cc autumn urine emptied from bladder. continues to deny pain to left hip. + CSM and positioned w/ pillow as wedge. dressing to left anterior hip is CDI. ice pack in place. LR at 125/hour. call light w/in reach.
[2021-04-05] MEDS: CEFAZOLIN 2 GM/20 ML SYRINGE IV (03:31)
[2021-04-05 06:00] VITALS: O2SAT 98
[2021-04-05 06:51] LABS: Hematocrit 30.6 % (36-46); Hemoglobin 10.4 g/dL (12.0-16.0)
[2021-04-05] MEDS: CALCIUM CARB/VIT D3 500/200 TABLET 1 EACH PO (08:37)
[2021-04-05] MEDS: ACETAMINOPHEN 325 MG TABLET 650 MG PO ×2 (08:38→13:16)
[2021-04-05] MEDS: ASPIRIN EC 81 MG TABLET PO (08:38)
[2021-04-05] MEDS: DOCUSATE 100 MG CAPSULE PO (08:38)
[2021-04-05] MEDS: OXYCODONE IR 5 MG TABLET PO ×2 (08:39→13:16)
[2021-04-05 08:40] VITALS: BP 124/63; PULSE 72
[2021-04-05] MEDS: carvediloL 12.5 MG TABLET 25 MG PO (08:40)
[2021-04-05 08:41] VITALS: BP 124/63; PULSE 72
[2021-04-05] MEDS: LOSARTAN 25 MG TABLET 75 MG PO (08:41)
[2021-04-05] MEDS: THYROID, PORK 30 MG TABLET 75 MG PO (08:42)
[2021-04-05] MEDS: polyethylene glycoL 3350 17 GM POWD.PACK PO (08:49)
[2021-04-05 08:52] VITALS: BP 124/63; PULSE 72; RESP 18; TEMP 36.4; O2SAT 99
--- NOTE | 2021-04-05 09:34 | PT.IIE ---
Current Diagnoses Unilateral primary osteoarthritis, left hip (04/04/21) Surgery Performed Operation Date: 04/04/21 10:15 Actual Procedures p Total Hip Arthroplasty/Anterior Approach(Left) - Jessica Alcantara MD Surgical History (Last Updated 04/01/21 @ 14:22 by Ela Petersen, RN) Anesthesia Medical History (Last Updated 04/01/21 @ 14:22 by Ela Petersen, RN) Cardiomyopathy Carotid artery disease Chicken pox Eczema (~1952) Jose's disease (~2010) HLD (hyperlipidemia) Hypertension (~2007) Low back pain (~2011) Measles Mumps Osteoarthritis Osteopenia (~2011) Plantar warts (~1959) Seborrhea capitis in adult Physical Therapy Inpatient Evaluation/Re-Eval M1 PT/OT-IP Prior Functional Status Start: 04/05/21 08:02 Freq: Status: Active Protocol: Document 04/05/21 08:27 MB (Rec: 04/05/21 09:33 MB [id number]) Medical Review Prior Functional Status Medical History Reviewed Yes Diet/Fluid Consistency Regular Communication WNLs Mobility and Gait I Activities of Daily Living and IADL's I Prior Functional Level (Other details) I. Pt was receiving pre-op OPPT at [facility] and plans to return there for outpatient PT in a week. Social History Household Members spouse Living Arrangements Apartment/Condo Number of Floors (Floors) One Floor Number of Stairs To Enter/Railing? No steps to enter Home Environment Standard Height Toilet,High Toilet,Walk in Shower Home Equipment Front Wheel Walker,Bedside Commode,Shower Seat with Backrest Employment Status Retired M2 PT-IP Current Condition Start: 04/05/21 08:02 Freq: Status: Active Protocol: Document 04/05/21 08:27 MB (Rec: 04/05/21 09:33 MB [id number]) Physical Therapy Current Condition Current Condition Evaluation Date 04/05/21 Treatment Diagnosis Decreased gait after left GONZALO Onset Date 04/04/21 M3 PT-IP Subjective Start: 04/05/21 08:02 Freq: Status: Active Protocol: Document 04/05/21 08:27 MB (Rec: 04/05/21 09:33 MB [id number]) Subjective Physical Therapy Visit Type Type Initial Evaluation Visit Start Time 08:27 Visit Stop Time 09:06 Total Visit Minutes 39 Number of DIE CUTTER Visits 0 Physical Therapy Visit Comments Patient Comments Pt states that she just got the ice. Therapy Pain Assessment Pain When Pain Assessed Rest & mob Pain Present Pain Present Pain Reported Location Left Hip Intensity 3 Scale Used Numeric (0 - 10) Description Acute Pain Behaviors Guarding Pain Management Techniques Apply Cold,Modification of Treatment,Re-positioning, Timing of Activity with Medications M4 PT-IP Mobility and Gait Start: 04/05/21 08:02 Freq: Status: Active Protocol: Document 04/05/21 08:27 MB (Rec: 04/05/21 09:33 MB [id number]) PT-Bed Mobility Assessment Supine to Sit Supine to Sit Contact Guard Assistance Sit to Supine Sit to Supine 1 Person Assistance,Head of Bed Elevated,Bedrails Scooting Scooting to Edge of Bed Contact Guard Assistance PT-Transfer Assessment Sit to and From Stand Sit to and from Stand Contact Guard Assistance,1 Person Assistance,Use of Upper Extremities Equipment Transfer Assistive Device Gait Belt,Front Wheeled Walker Orthotic/Prosthetic Devices or Brace: No Transfer Ability Level of Assist Contact Guard Assistance,1 Person Assistance,Use of Upper Extremities Comments Mobility Comments Pt tends to guard LLE and is concerned about pain. She requires PT max assist to [facility] socks and don her own socks and shoes d/t pt reports her right toes bother her if she gait trains without shoes. CGA and cues to move left leg out to the side of bed to the left. Pt's left leg is mildly edematous post-op. Cues to square up hips to sit EOB safely. Cues to push up from the bed and not from the walker for sit to stand. Pt cannot transfer to bathroom toilet in room d/t too low, even with cues to scoot left foot out in front of her. Transfer to BSC goes okay and cues to scoot left foot out in front of her and to reach for BSC. Set-up assist for hygiene. Gait Assessment Gait Gait Assistance Required: Standby Assistance,Contact Guard Assist Distance (Feet) 125 Able to Maintain Weight Bearing Status Yes During Gait Assistive Devices Assistive Device Gait Belt,Front Wheeled Walker Orthotic/Prosthetic Devices or Brace: No Gait Deviations General Gait Pattern Antalgic,Decreased Stride Length,Decreased Feet Clearance,Flexed Trunk,Step-to Gait Factors Limiting Gait Function Factors Limiting Gait Function Decreased Activity Tolerance, Decreased Strength,Limited Range of Motion,Pain,Poor Balance Comments Gait Comments Pt gait trains 125', then 15', then 10' from bed to hallway and back to bathroom in hospital room, then to BSC and then to chair. With fatigue, she tends to flex over more and cues to stand better upright. She starts with step- to gait, left and then RLE which improves with increased gait distance and pt takes better step-through steps/ reciprocal gait. Cues for keeping feet inside walker for side stepping and preparing to turn with walker and stepping back to the chair. Decreased WB through the left foot and increased UE support on the walker. She requires CGA and then superv for gait. Stair Climbing Assessment Comments Stair Climbing Comments No steps at home PT-Balance Assessment Sitting Balance and Reactions Static Sitting Balance Ability Fair Dynamic Sitting Balance Ability Fair Standing Balance and Reactions Static Standing Balance Ability Fair Dynamic Standing Balance Ability Fair Device Used Heavy UE support with sitting and standing M5 PT-IP Objective Assessments Start: 04/05/21 08:02 Freq: Status: Active Protocol: Document 04/05/21 08:27 MB (Rec: 04/05/21 09:33 [id number]) Orientation Orientation/Cognition Level of Alertness Alert Orientation Name,Age,Birthday,Month,Date, Year,Day of Week,Place, Situation Language Function Ability No Deficits Noted Safety Awareness Understands Safety Issues Memory Description No Deficits Noted Gross Range of Motion Upper Extremity ROM Assessment Within Functional Limits Lower Extremity ROM Assessment Left Impaired Strength Upper Extremity Strength Assessment Within Functional Limits Lower Extremity Strength Assessment Left Impaired Comments Strength Comments RLE functional and LLE MMT deferred after GONZALO M6 PT-IP Treatment Start: 04/05/21 08:02 Freq: Status: Active Protocol: Document 04/05/21 08:27 MB (Rec: 04/05/21 09:33 [id number]) Physical Therapy Treatment Exercises Exercises Ankle Pumps,Quad Sets,Heel Slides Education Education Provided Precautions,Weight Bearing Status,Post-Op Packet,Safety Other Treatments Other Treatment Performed Ed pt in WBAT LLE and no ER and extension post-op M7 PT-IP Assessment and Plan Start: 04/05/21 08:02 Freq: Status: Active Protocol: Document 04/05/21 08:27 MB (Rec: 04/05/21 09:33 [id number]) PT Summary Assessment and Plan Potential Rehabilitation Potential Good Status of Condition at Evaluation Stable Summary Impairments Pain,ROM,Strength,Balance Assessment Summary Pt is a 75 y/o female presenting with pain and decreased mobility POD 1 left GONZALO. She presents with LLE weakness and guarding. arrives during evaluation. Pt is able to demonstrate transfers and gait with RW with PT and nearby. PT answers questions and they have needed DME at home. Pt plans to return to OPPT in a week. She denies dizziness with getting up and her BP and HR in LUE are: 122/61, 71 in hook lying and 136/61, 79 once sitting up on the side of the bed. She does not have any further acute PT needs. Recommend up with nsg. She was left up in chair with needs in reach and nearby and nsg aware. Frequency of Treatment Frequency Of Treatment Discharge Precautions Anterior Hip Precautions No Hip Extension,No Hip External Rotation Weight Bearing Status Weight Bearing Status Weight Bear as Tolerated Recommendations To Nursing Amount of Assist Needed Standby Assistance,1 Person Assist Discharge Recommendations PT Discharge Recommendations Home with 20/10 Assist Available,Outpatient PT Transportation Needs at Discharge Private Vehicle
--- NOTE | 2021-04-05 10:33 | P.DS_ITS ---
History of Present Illness History of Present Illness Date Patient Seen: 04/05/21 Time Patient Seen: 07:50 Chief complaint: Left hip pain s/p left GONZALO Narrative: The patient is complaining of [id number] left hip pain. She is just taking Tylenol and ibuprofen. Denies any new numbness or tingling. Overall she is feeling well and would like to be discharged home today Discharge Providers Provider Date of admission: 04/04/21 08:15 Discharge Date: 04/05/21 Primary care physician: TELLO Crystal Consults: 04/03/21 10:19 Consult to Anesthesiology Routine Comment: Consulting Provider: Anesthesiologist Reason for consultation: PAC courtesy re: Abnormal pre-op EKG 04/04/21 06:00 Consult to Anesthesiology Routine Comment: Consulting Provider: Anesthesiologist Reason for consultation: Regional block for post operative pain control 04/04/21 14:35 Consult to Anesthesiology Routine Comment: Consulting Provider: Anesthesiologist Reason for consultation: Regional block for post operative pain control Consult to Discharge Planning Routine Comment: Consult to Physical Therapy Evaluate & Treat Comment: Physician Instructions: post op GONZALO protocol Consult to Respiratory Therapy Evaluate & Treat Comment: Physician Instructions: Evaluate and treat Discharge provider: Salima Thompson PA-C Summary Hospital Course Discharge Diagnosis: Severe left hip osteoarthritis. Hospital Course: Operative Date/Time/Diagnoses Date of procedure: 04/04/21 Time of procedure: 11:00 Procedure & Clinicians Procedure: Left total hip arthroplasty anterior approach Same procedure as scheduled: Yes Indications: The patient has had progressively worsening left hip pain with radiographic changes consistent with arthritis. Non-operative management has failed and the patient has requested total hip replacement. The risks, benefits and alternatives to surgery were discussed with the patient prior to proceeding. Risks discussed included, but were not limited to, failure to relieve pain, leg length discrepancy, dislocation, stiffness, infection, nerve damage, deep venous thrombosis, pulmonary embolism, stroke, coma, heart attack, permanent paralysis and , as well as the potential need for eventual revision of the prosthetic. Surgeon: Jessica Alcantara Horse Show Manager: Gurjit Roy Anesthesia Type: General and Spinal Operative Notes Findings: Severe left hip osteoarthritis, adequate stability and bone Closure Type: primary Specimen(s): none sent Prosthetic devices, grafts, tissues, transplants, or devices: Alcantara and nephew 48 mm R3 cup, anthology standard offset size 5, -3 oxinium, neutral poly liner, one screw Estimated Blood Loss (mL): 250 Blood products transfused: none Status at Discharge Cognitive/behavioral status at discharge: oriented Functional status at discharge: uses cane/walker Overall status at discharge: patient is progressing back to baseline Exam Vital Signs (past 8 hours): - 04/05/21 06:00 04/05/21 08:40 04/05/21 08:41 Temperature Pulse Rate 72 72 Respiratory Rate Blood Pressure 124/63 124/63 Pulse Oximetry 98 04/05/21 08:52 Temperature 97.5 F L Pulse Rate 72 Respiratory Rate 18 Blood Pressure 124/63 Pulse Oximetry 99 Oxygen Delivery Method Room Air Oxygen Flow Rate 0 Narrative Exam Narrative: Pleasant 75-year-old female, resting comfortably in bed, no acute distress. Dressing is clean, dry, intact. Bilateral lower extremities: Motor function is grossly intact, sensation is grossly intact to light touch, calves are soft and nontender to palpation. Objective Labs Result Diagrams: 04/05/21 06:30 Labs: Laboratory Results - last 24 hr 04/05/21 06:30 Hgb 10.4 L Hct 30.6 L PFSH Medical History Cardiomyopathy Carotid artery disease Chicken pox Eczema (~1952) Jose's disease (~2010) HLD (hyperlipidemia) Hypertension (~2007) Low back pain (~2011) Measles Mumps Osteoarthritis Osteopenia (~2011) Plantar warts (~1959) Seborrhea capitis in adult Surgical History Anesthesia History of hernia surgery (~2009) Hx of tonsillectomy Family History Father History of heart disease Mother Vascular disease Brother Parkinson's disease Grandmother Cancer Social History household members: spouse Smoking Status: Former smoker alcohol intake: current Discharge Assessment & Plan Assessment and Plan Assessment: Stable status post left total hip arthroplasty, anterior approach Plan of Treatment: Low-mobilize with PT. Weightbearing as tolerated with front wheel walker. Maintain anterior hip precautions x6 weeks -continue with current pain regimen and DVT prophylaxis -DC home today when cleared by PT Discharge Plan Discharge Plan Patient Disposition: Home Discharge orders & Medications Prescriptions: New acetaminophen 500 mg capsule 500 mg PO Q4H MDD Max 3000 mg a day PRN (Reason: fever or pain) Qty: 90 0RF aspirin 81 mg Tablet,Delayed Release (Dr/Ec) 81 mg PO BID 42 Days Qty: 84 0RF Rx Instructions: Prevent blood clots docusate sodium 100 mg Capsule 100 mg PO BID PRN (Reason: Constipation from narcotic pain meds) Qty: 30 0RF ibuprofen 400 mg Tablet 400 mg PO Q4HR MDD max 2400 mg per day PRN (Reason: Pain/inflammation) Qty: 9 0 0RF oxycodone 5 mg Tablet 5 mg PO Q4HR PRN (Reason: Pain, Moderate (4-6)) Qty: 42 0RF Continued calcium carb and citrate-vitD3 [Citracal-D3 Slow Release] 600 mg calcium- 500 unit tablet extended release 1 tab PO BID Qty: 180 3RF Rx Instructions: Take 1 tab twice daily for bone health losartan 50 mg tablet 50 mg PO DAILY Qty: 90 3RF Rx Instructions: Take 1 tab with 25mg tablet for total of 75mg/day for hypertension losartan 25 mg tablet 25 mg PO DAILY Qty: 90 3RF Rx Instructions: Take with 50mg tab for total 75mg/day for hypertension thyroid (pork) [[place] Thyroid] 60 mg tablet See Rx Instructions PO DAILY Qty: 90 3RF Rx Instructions: Take one 60mg tablet by mouth daily with one 15mg tablet for a total of 75mg daily ketoconazole 2 % shampoo 1 applic topical 2XW 0RF ketoconazole 2 % cream 1 applic topical DAILY PRN (Reason: rash under breast) 0RF clobetasol 0.05 % cream 1 applic topical DAILY PRN (Reason: eczema) 0RF atorvastatin 20 mg tablet 20 mg PO BEDTIME Qty: 90 3RF Rx Instructions: Take 1 tab at bedtime daily for carotid artery plaque carvedilol 25 mg tablet 25 mg PO Q12H Qty: 180 3RF Rx Instructions: must administer with a meal/food Discontinued acetaminophen 500 mg Tablet 1,000 mg PO Q6H PRN (Reason: Pain) 0RF Follow up/Referrals: Loreta Betancourt ARNP [Primary Care Provider] - Jessica Alcantara MD [Physician] - (10-14 days for postoperative visit) Diet/Activity/Treatments Diet: Diet as Tolerated and Regular Other treatments: Medications: -Aspirin 81mg twice daily x6 weeks to prevent blood clots. -OTC Tylenol 500 mg 1 tablet every 4 hours as needed for pain/fever. Max 6 tablets per day. -Ibuprofen 400 mg 1 tablet every 4 hours as needed for pain/inflammation. Max 2,400 mg per day. -Oxycodone 5 mg take 1-2 tablets every 4 hours as needed for moderate-severe pain (narcotic pain medication). -As needed medications: -Ducolax and /or MiraLax as needed for constipation from narcotic pain medications. -Pepcid AC as needed for stomach upset (usually from aspirin or i buprofen). Dressing/Wound care: -Keep Aquacell dressing in place until postoperative follow-up office visit. -Okay to shower. Keep wound out of direct water stream. No soaking or submerging until all the scabs fall off (approximately 6 weeks). -Please call the office if dressing becomes wet, soiled, or saturated. Activities: -Maintain anterior hip precautions x6 weeks. -Weight-bearing as tolerated. Use front wheeled walker, and progress to cane when safe. -Continue with home exercises as directed by your physical therapist. -Elevate ?toes above the nose if you have significant swelling in your lower leg. (A wedge pillow is easiest.) -Ice your incision as needed for pain/inflammation/swelling. Protect your skin with a folded pillowcase. Follow-up: -Follow-up with your surgeon or PA in the office in 10-14 days after surgery. -Follow-up with your surgeon 6 weeks postoperatively. Call the office if you have chest pain, shortness of breath, significant swel ling that will not resolve with elevating, fever over 101?, significantly worsening pain. [facility]: [phone] Skin/Wound/Dressing Care Report to your healthcare provider any signs of infection, such as:: chills, fever, night sweats, unusual drainage and unusual redness Visit Report/Discharge Packet Instructions: DI for Hip Replacement Stand Alone Forms: Surgery Discharge Discharge Data Primary Care Provider: Loreta Betancourt Attending Provider: Jessica Alcantara
--- NOTE | 2021-04-05 17:26 | PC.NURSE ---
Addendum entered by Crissy Garcia R.N. 04/05/21 17:30: She is cleared by PT and ortho to discharge home. She and her spouse verbalize understanding of hip precautions, activity, exercises, medications, s/s of infection, site care and follow up appointment. She is escorted via w/ch with all of her belongings including FWW and gait belt to private vehicle for discharge home at approximately 1330 Original Note: Pt is A&Ox3. She reports pain level tolerable this a.m. and has been able to void without difficulty x4 after initial straight cath. VSS,afebrile, on RA. LS CTA., She is passing gas
== END 2021-04-05 13:30 | disposition home or self-care (01) ==
LOC: OR 08:17 → AC 08:17
PROVIDERS: Admitting Provider Orthopaedic Surgery; PCP Nurse Practitioner; Referring Provider Orthopaedic Surgery; Visit Provider Orthopaedic Surgery
PROC: (CPT 27130; principal; 2021-04-04 10:15)
DX: M16.12 Unilateral primary osteoarthritis, left hip (principal); E06.3 Autoimmune thyroiditis; I10 Essential (primary) hypertension; E78.5 Hyperlipidemia, unspecified
CPT/HCPCS: 27130; 36415; 73502; 76000; 85014; 85018; 94760; 94762; 97116; 97161; C1776; G0378; C9290; J0171; J0690; J1100; J2250; J2274; J2405; J2704; J3010

== ENCOUNTER → 2021-05-27 16:12 | Outpatient (CLI) | payer OTHER, MEDICARE, SELFPAY ==
[2021-04-04 14:35] VITALS: BMI 25.7
[2021-05-27 18:44] LABS: Free T3, Triiodothyronine Free 3.34 pg/mL (2.77-5.27); Free T4, Direct Thyroxine 0.97 ng/dL (0.78-2.19)
[2021-05-27 18:58] LABS: Thyroid Stimulating Hormone 2.29 uIU/mL (0.47-4.68)
[2021-05-28 05:47] LABS: Thyroid Peroxidase Antibodies 411 IU/mL (0-34)
== END ==
PROVIDERS: PCP Nurse Practitioner; Referring Provider Nurse Practitioner; Visit Provider Nurse Practitioner
DX: E06.3 Autoimmune thyroiditis (principal); Z79.899 Other long term (current) drug therapy
CPT/HCPCS: 36415; 84439; 84443; 84481; 86376

== ENCOUNTER → 2021-08-12 15:56 | Outpatient (CLI) | payer OTHER, SELFPAY ==
[2021-04-04 14:35] VITALS: BMI 25.7
--- NOTE | 2021-08-12 15:58 | DI.MG.S_ITS ---
BILATERAL DIGITAL SCREENING MAMMOGRAM 3D/2D WITH CAD: 08/12/2021 CLINICAL: Routine screening. Family history of breast cancer. Comparison is made to exams dated: 08/10/2020 mammogram - [facility], 01/27/2019 mammogram, and 12/08/2017 mammogram - outside location. There are scattered fibroglandular elements in both breasts. Current study was also evaluated with a Computer Aided Detection (CAD) system. No significant masses, calcifications, or other findings are seen in either breast. There has been no significant interval change. IMPRESSION: NEGATIVE There is no mammographic evidence of malignancy. A 1 year screening mammogram is recommended. This exam was interpreted at Station ID: [id number]. NOTE: For mammograms, a report in lay terms will be sent to the patient. Approximately 15% of breast malignancies will not be visualized mammographically. In the management of a palpable breast mass, a negative mammogram must not discourage biopsy of a clinically suspicious lesion. Electronically Signed By: Radha lynn/stephani:08/13/2021 09:36:46 letter sent: Normal Exam ACR BI-RADS Category 1: Negative [id number]
== END ==
PROVIDERS: PCP Nurse Practitioner; Referring Provider Nurse Practitioner; Visit Provider Nurse Practitioner
DX: Z12.31 Encounter for screening mammogram for malignant neoplasm of breast (principal); Z80.3 Family history of malignant neoplasm of breast
CPT/HCPCS: 77063; 77067

== ENCOUNTER → 2021-09-17 14:10 | Outpatient (CLI) | payer OTHER, SELFPAY ==
[2021-04-04 14:35] VITALS: BMI 25.7
--- NOTE | 2021-09-17 | DI.MRI.S_ITS ---
PROCEDURE: MR LUMBAR SPINE WO CON INDICATIONS: Spondylolysis, lumbar region TECHNIQUE: Noncontrast sagittal T1 spin echo and T2 fast echo, sagittal STIR, and T2 fast spin echo through the lumbar spine. In cases with scoliosis, additional coronal T2 fast spin echo may be performed. COMPARISON: None. FINDINGS: Image quality: Excellent. Alignment and Curvature: There is normal bony alignment. Bone Marrow: Marrow is of normal overall signal. No acute vertebral body compression fractures. Spinal Cord: Conus medullaris terminates at the L1 level. Visualized cord demonstrates normal signal and size. Paraspinous Soft Tissues: No paravertebral masses. T12-L1: Normal appearance. L1-L2: Normal appearance. L2-L3: Mild facet and ligamentum flavum hypertrophy. No canal stenosis or foraminal stenosis. L3-L4: Mild disc bulge. Mild facet and ligamentum flavum hypertrophy. Mild canal stenosis. No neural foraminal narrowing. L4-L5: Mild disc desiccation and height loss. Broad-based disc bulge. Severe facet and ligamentum flavum hypertrophy. No canal stenosis. No neural foraminal stenosis. L5-S1: Mild disc desiccation and height loss. Vacuum disc phenomenon. Broad-based disc bulge. Mild facet hypertrophy. Small focal posterior high-intensity zone is present. No canal stenosis. No neural foraminal stenosis. IMPRESSION: 1. Mild canal stenosis at L3-4 secondary to broad-based disc bulge. 2. Severe facet and ligamentum flavum hypertrophy at L4-5. 3. L5-S1 posterior annular fibrosis tear. Dictated by: Radha Sanchez M.D. on 09/17/2021 at 15:23 Approved by: Radha Sanchez M.D. on 09/17/2021 at 15:27
== END ==
PROVIDERS: PCP Nurse Practitioner; Referring Provider Orthopaedic Surgery; Visit Provider Orthopaedic Surgery
DX: M43.06 Spondylolysis, lumbar region (principal); M48.061 Spinal stenosis, lumbar region without neurogenic claudication; M51.26 Other intervertebral disc displacement, lumbar region; M51.37 Other intervertebral disc degeneration, lumbosacral region
CPT/HCPCS: 72148

== ENCOUNTER → 2021-10-02 14:52 | Outpatient (CLI) | payer OTHER, SELFPAY ==
[2021-04-04 14:35] VITALS: BMI 25.7
[2021-10-02 15:52] LABS: Free T3, Triiodothyronine Free 4.24 pg/mL (2.77-5.27); Free T4, Direct Thyroxine 0.86 ng/dL (0.78-2.19)
[2021-10-02 16:05] LABS: Thyroid Stimulating Hormone 0.831 uIU/mL (0.47-4.68)
== END ==
PROVIDERS: PCP Nurse Practitioner; Referring Provider Nurse Practitioner; Visit Provider Nurse Practitioner
DX: E06.3 Autoimmune thyroiditis (principal)
CPT/HCPCS: 36415; 84439; 84443; 84481

== ENCOUNTER → 2022-02-01 10:05 | Outpatient (CLI) | payer OTHER, SELFPAY ==
[2021-04-04 14:35] VITALS: BMI 25.7
[2022-02-01 10:45] LABS: Alanine Aminotransferase 27 IU/L (<35); Albumin 4.3 g/dL (3.5-5.0); Alkaline Phosphatase 69 U/L (38-126); Aspartate Aminotransferase 26 IU/L (14-36); BUN Creatinine Ratio 25.3 (6-22); Bilirubin Total 0.7 mg/dL (0.2-1.3); Blood Urea Nitrogen 20 mg/dL (7-17); Calcium 9.8 mg/dL (8.4-10.2); Carbon Dioxide 24 mmol/L (22-32); Chloride 106 mmol/L (98-107); Estimated Glomerular Filt Rate > 60 mL/min (>60); Glucose 114 mg/dL (80-110); HEMOLYSIS 24 (0-50); Potassium 4.3 mmol/L (3.4-5.1); Sodium 139 mmol/L (137-145); Total Protein 7.2 g/dL (6.3-8.2)
[2022-02-01 10:46] LABS: Albumin Globulin Ratio 1.5 (1.0-2.8); Cholesterol 153 mg/dL (140-199); Globulin 2.9 g/dL (1.7-4.1); HDL Cholesterol 89 mg/dL (40-60); LDL Cholesterol Calculated 51 mg/dL (<100); Triglycerides 65 mg/dL (35-150)
[2022-02-01 11:02] LABS: Free T3, Triiodothyronine Free 5.43 pg/mL (2.77-5.27); Free T4, Direct Thyroxine 0.97 ng/dL (0.78-2.19)
[2022-02-01 11:15] LABS: Thyroid Stimulating Hormone 0.103 uIU/mL (0.47-4.68)
[2022-02-01 12:25] LABS: Creatinine Urine Random 72.9 mg/dL
[2022-02-01 12:30] LABS: Microalbumi Creatinin Ratio Ur 10.9 ug/mg CR (<30); Microalbumin Urine Random 0.8 mg/dL (0-1.6)
== END ==
PROVIDERS: PCP Nurse Practitioner; Referring Provider Nurse Practitioner; Visit Provider Nurse Practitioner
DX: E06.3 Autoimmune thyroiditis (principal); R53.83 Other fatigue; I10 Essential (primary) hypertension; I42.9 Cardiomyopathy, unspecified; I65.21 Occlusion and stenosis of right carotid artery; I77.9 Disorder of arteries and arterioles, unspecified
CPT/HCPCS: 36415; 80053; 80061; 82043; 82570; 84439; 84443; 84481

== ENCOUNTER → 2022-03-04 13:03 | Outpatient (CLI) | payer OTHER, SELFPAY ==
[2021-04-04 14:35] VITALS: BMI 25.7
[2022-03-04 19:29] LABS: Appearance Urine UA CLEAR; Bilirubin Urine UA NEGATIVE (NEGATIVE); Color Urine UA YELLOW; Glucose Urine UA NEGATIVE (Negative); Ketones Urine UA NEGATIVE (NEGATIVE); Leukocyte Esterase Urine UA TRACE (NEGATIVE); Nitrite Urine UA NEGATIVE (Negative); Occult Blood Urine UA NEGATIVE (Negative); Protein Urine UA NEGATIVE (Negative); Urobilinogen Urine UA 0.2 E.U./dL (0.2)
[2022-03-04 19:31] LABS: pH Urine UA 7.5 (4.5-8.0)
[2022-03-04 19:46] LABS: Bacteria Urine None Seen; Hyaline Casts Urine 1-5/LPF; RBC Urine None Seen (0-5/HPF); Squamous Epithelial Cell Urine 0-1 /HPF (0-5/HPF); Transitional Epi Cells Urine 0-1/HPF (0-5/HPF); WBC Urine 1-5/HPF (0-5/HPF)
[2022-03-04 19:47] LABS: Culture Indicated Urine Specimen Cultured
== END ==
PROVIDERS: PCP Nurse Practitioner; Referring Provider Nurse Practitioner; Visit Provider Nurse Practitioner
DX: R35.0 Frequency of micturition (principal)
CPT/HCPCS: 81001; 87086

== ENCOUNTER → 2022-06-12 12:39 | Outpatient (CLI) | payer OTHER, SELFPAY ==
[2021-04-04 14:35] VITALS: BMI 25.7
[2022-06-12 14:09] LABS: Free T3, Triiodothyronine Free 5.16 pg/mL (2.77-5.27); Free T4, Direct Thyroxine 0.98 ng/dL (0.78-2.19)
[2022-06-12 14:22] LABS: Thyroid Stimulating Hormone 0.825 uIU/mL (0.47-4.68)
== END ==
PROVIDERS: PCP Nurse Practitioner; Referring Provider Nurse Practitioner; Visit Provider Nurse Practitioner
DX: E06.3 Autoimmune thyroiditis (principal); I10 Essential (primary) hypertension
CPT/HCPCS: 36415; 84439; 84443; 84481

== ENCOUNTER → 2023-01-19 10:28 | Outpatient (CLI) | payer OTHER, SELFPAY ==
[2021-04-04 14:35] VITALS: BMI 25.7
[2023-01-19 11:40] LABS: Alanine Aminotransferase 24 IU/L (<35); Albumin 4.3 g/dL (3.5-5.0); Albumin Globulin Ratio 1.5 (1.0-2.8); Alkaline Phosphatase 67 U/L (38-126); Aspartate Aminotransferase 24 IU/L (14-36); BUN Creatinine Ratio 36.8 (6-22); Bilirubin Total 0.5 mg/dL (0.2-1.3); Blood Urea Nitrogen 32 mg/dL (7-17); Calcium 10.2 mg/dL (8.4-10.2); Carbon Dioxide 25 mmol/L (22-32); Chloride 102 mmol/L (98-107); Cholesterol 155 mg/dL (140-199); Estimated Glomerular Filt Rate > 60 mL/min (>60); Globulin 2.8 g/dL (1.7-4.1); Glucose 107 mg/dL (80-110); HDL Cholesterol 74 mg/dL (40-60); HEMOLYSIS < 15 (0-50); LDL Cholesterol Calculated 56 mg/dL (<100); Potassium 4.7 mmol/L (3.4-5.1); Sodium 135 mmol/L (137-145); Total Protein 7.1 g/dL (6.3-8.2); Triglycerides 127 mg/dL (35-150)
[2023-01-19 11:53] LABS: Free T3, Triiodothyronine Free 6.18 pg/mL (2.77-5.27)
[2023-01-19 12:07] LABS: Thyroid Stimulating Hormone 1.54 uIU/mL (0.47-4.68)
== END ==
PROVIDERS: PCP Nurse Practitioner; Referring Provider Nurse Practitioner; Visit Provider Nurse Practitioner
DX: I10 Essential (primary) hypertension (principal); E06.3 Autoimmune thyroiditis; M85.80 Other specified disorders of bone density and structure, unspecified site; I65.23 Occlusion and stenosis of bilateral carotid arteries
CPT/HCPCS: 36415; 80053; 80061; 84439; 84443; 84481

== ENCOUNTER → 2023-01-20 14:35 | Outpatient (CLI) | payer OTHER, SELFPAY ==
[2021-04-04 14:35] VITALS: BMI 25.7
[2023-01-20 16:06] LABS: Creatinine Urine Random 35.3 mg/dL
[2023-01-20 16:14] LABS: Microalbumin Urine Random < 0.6 mg/dL (0-1.6)
== END ==
PROVIDERS: PCP Nurse Practitioner; Referring Provider Nurse Practitioner; Visit Provider Nurse Practitioner
DX: I10 Essential (primary) hypertension (principal); E06.3 Autoimmune thyroiditis; M85.80 Other specified disorders of bone density and structure, unspecified site; I65.23 Occlusion and stenosis of bilateral carotid arteries
CPT/HCPCS: 82043; 82570

== ENCOUNTER → 2023-01-27 12:37 | Outpatient (CLI) | payer OTHER, SELFPAY ==
[2023-01-27 12:01] VITALS: BMI 25.7
[2023-01-27 14:12] LABS: Add Manual Diff / Slide Review NO; Basophils Absolute Auto 100 /uL (0-100); Basophils Percent Auto 0.8 % (0-2); Eosinophils Absolute Auto 100 /uL (0-450); Eosinophils Percent Auto 1.2 % (2-4); Hematocrit 37.3 % (36-46); Hemoglobin 12.5 g/dL (12.0-16.0); Lymphocytes Absolute Auto 1000 /uL (1100-4500); Lymphocytes Percent Auto 14.3 % (25-40); Mean Corpuscular HGB Conc 33.6 % (30-36); Mean Corpuscular Hemoglobin 29.9 PG (26-34); Monocytes Absolute Auto 700 /uL (0-900); Monocytes Percent Auto 10.7 % (3-14); Neutrophils Absolute Auto 4900 /uL (1500-7000); Platelet Count 291 X10^3/uL (150-400); Red Blood Cell Count 4.19 X10^6/uL (4.0-5.2); Red Cell Distribution Width 13.3 % (11.6-14.8); White Blood Cell Count 6.7 X10^3/uL (4.5-11.0)
[2023-01-27 14:24] LABS: HEMOLYSIS < 15 (0-50); Iron 107 ug/dL (37-170)
[2023-01-27 14:36] LABS: Percent Iron Saturation 36 % (15-50); Total Iron Binding Capacity 295 ug/dL (265-497); Transferrin 245 mg/dL (206-381)
[2023-01-27 15:18] LABS: Vitamin B12 601 pg/mL (239-931)
== END ==
PROVIDERS: PCP Nurse Practitioner; Referring Provider Nurse Practitioner; Visit Provider Nurse Practitioner
DX: R53.83 Other fatigue (principal)
CPT/HCPCS: 36415; 82607; 83540; 83550; 85025

== ENCOUNTER → 2023-02-10 14:35 | Outpatient (CLI) | payer OTHER, SELFPAY ==
[2023-01-27 12:01] VITALS: BMI 25.7
[2023-02-11 13:37] LABS: Fecal Immunochemical Test Negative (Negative)
== END ==
PROVIDERS: PCP Nurse Practitioner; Referring Provider Nurse Practitioner; Visit Provider Nurse Practitioner
DX: Z12.11 Encounter for screening for malignant neoplasm of colon (principal)
CPT/HCPCS: 82274

== ENCOUNTER → 2023-03-27 15:43 | Outpatient (CLI) | payer OTHER, SELFPAY ==
[2023-01-27 12:01] VITALS: BMI 25.7
--- NOTE | 2023-03-27 15:44 | DI.MRI.S_ITS ---
PROCEDURE: MR LUMBAR SPINE WO CON INDICATIONS: worsening lumbar spine pain TECHNIQUE: Noncontrast sagittal T1 spin echo and T2 fast echo, sagittal STIR, and T2 fast spin echo through the lumbar spine. In cases with scoliosis, additional coronal T2 fast spin echo may be performed. COMPARISON: [facility], MR, MR LUMBAR SPINE WO CON, 09/17/2021, 14:47. FINDINGS: Image quality: Excellent. Alignment and Curvature: Grade 1 anterolisthesis of L4 on L5. Straightening of the normal lumbar lordosis.. Bone Marrow: Marrow is of normal overall signal. No acute vertebral body compression fractures. Spinal Cord: Conus medullaris terminates at the L1-L2 level. Visualized cord demonstrates normal signal and size. Paraspinous Soft Tissues: No paravertebral masses. T12-L1: No central canal or neural foraminal stenosis. L1-L2: Disc desiccation and mild disc bulge. No central or neural foraminal stenosis. L2-L3: Disc desiccation and minimal disc bulge. No central canal or neural foraminal stenosis. L3-L4: Disc desiccation and mild disc bulge. Facet arthropathy. Epidural lipomatosis. Mild central canal stenosis. No neural foraminal stenosis. L4-L5: Disc desiccation and minimal disc bulge. Facet arthropathy. Epidural lipomatosis. No central canal or neural foraminal stenosis. L5-S1: Disc desiccation height loss. Minimal disc bulge. Annular tear is noted. Facet arthropathy. No central canal or neural foraminal stenosis. IMPRESSION: Mild degenerative changes of the lumbar spine as described above. Stable mild central canal stenosis at L3-L4. Otherwise, no central canal or neural foraminal stenosis. Dictated by: Lev La M.D. on 03/28/2023 at 9:38 Approved by: Lev La M.D. on 03/28/2023 at 9:42
== END ==
PROVIDERS: PCP Nurse Practitioner; Referring Provider Nurse Practitioner; Visit Provider Nurse Practitioner
DX: M47.816 Spondylosis without myelopathy or radiculopathy, lumbar region (principal); M47.817 Spondylosis without myelopathy or radiculopathy, lumbosacral region; M48.061 Spinal stenosis, lumbar region without neurogenic claudication; M51.36 Other intervertebral disc degeneration, lumbar region
CPT/HCPCS: 72148

== ENCOUNTER → 2023-05-08 12:21 | Outpatient (CLI) | payer OTHER, SELFPAY ==
[2023-01-27 12:01] VITALS: BMI 25.7
--- NOTE | 2023-05-08 12:21 | DI.RAD.S_ITS ---
Bone Density Report Name: DONY ESCALONA Age: 77 Sex: Female Ethnicity: White Date of : 1945 Indication: osteopenia; Referring Provider: HAILY ROSEN Study: Bone densitometry was performed. Exam Date: May 08, 2023 Accession number: [id number] Bone Density: Region BMD T-score Z-score Classification AP Spine(L1-L4) 0.816 -2.1 0.4 Osteopenia Femoral Neck (Right) 0.719 -1.2 1.0 Osteopenia Total Hip (Right) 0.701 -2.0 -0.1 Osteopenia Total Forearm (Left) 0.507 -1.3 1.3 Osteopenia 1/3 Forearm (Left) 0.574 -2.0 0.7 Osteopenia UD Forearm (Left) 0.420 -0.4 1.5 Normal World Health Organization criteria for BMD impression classify patients as: Normal (T-score at or above -1.0), Osteopenia (T-score between -1.0 and -2.5), or Osteoporosis (T-score at or below -2.5). 10-year Fracture Risk(1): Major Osteoporotic Fracture 11% Hip Fracture 2.0% Reported Risk Factors: [place] (), Neck BMD=0.719, BMI=25.8 (1) FRAX(R) Version 3.08. Fracture probability calculated for an untreated patient. Fracture probability may be lower if the patient has received treatment. Previous Exams: -- Region Exam Age BMD T-score BMD Change BMD Change Date g/cm2 vs Baseline vs Previous -- AP Spine (L1-L4) 05/08/2023 77 0.816 -2.1 -0.040 (-4.6%)# -0.040 (-4.6%)# 02/16/2020 74 0.855 -1.7 Total Hip(Right) 05/08/2023 77 0.701 -2.0 -0.040 (-5.5%)# -0.040 (-5.5%)# 02/16/2020 74 0.742 -1.6 -- *Denotes significance at 95% confidence level, LSC for AP Spine = 0.022 g/cm2, LSC for Total Hip = 0.027 g/cm2 # Denotes dissimilar scan types or analysis methods Impression: The patient has low bone mass, based on the Total Spine T-score. The patient has an estimated ten-year risk of hip fracture of 2% and an estimated ten-year risk of major fracture of 11%, based on the WHO FRAX algorithm. No significant bone loss was observed. Discussion: BONE DENSITY IS LOW AT ONE OR MORE SKELETAL SITES. This patient's lowest T-score is low at one or more skeletal sites. It meets the World Health Organization's (WHO) criteria for low bone mass (T-score between -1.0 and -2.5). The patient's 10-year risk of fracture as calculated by FRAX is less than the threshold where pharmacological therapy is recommended by the National Osteoporosis Foundation (NOF). However, all treatment decisions require clinical judgment and consideration of individual patient factors, including patient preferences, comorbidities, previous drug use, risk factors not captured in the FRAX model (e.g., frailty, falls, vitamin D deficiency, increased bone turnover, interval significant decline in bone density) and possible under or overestimation of fracture risk by FRAX. The patient should follow a healthful lifestyle (good nutrition with adequate calcium and vitamin D, and appropriate weight-bearing exercise). Follow-Up: Consider repeating this study in 2 to 3 years to reassess this patient's status, or sooner if there is some new clinical indication. Reported by: [facility] ABDULAZIZ LIU M.D. on 05/08/2023 12:51:00 PM.
== END ==
LOC: RAD 12:21
PROVIDERS: PCP Nurse Practitioner; Referring Provider Orthopaedic Surgery Adult Reconstructive Orthopaedic Surgery; Visit Provider Orthopaedic Surgery Adult Reconstructive Orthopaedic Surgery
DX: M16.11 Unilateral primary osteoarthritis, right hip (principal); M85.88 Other specified disorders of bone density and structure, other site
CPT/HCPCS: 77080; 77081

== ENCOUNTER → 2023-05-15 12:30 | Outpatient (CLI) | payer OTHER, SELFPAY ==
[2023-01-27 12:01] VITALS: BMI 25.7
[2023-05-15 14:02] LABS: Add Manual Diff / Slide Review NO; Basophils Absolute Auto 0 /uL (0-100); Basophils Percent Auto 0.7 % (0-2); Eosinophils Absolute Auto 100 /uL (0-450); Eosinophils Percent Auto 1.7 % (2-4); Hematocrit 36.1 % (36-46); Hemoglobin 12.2 g/dL (12.0-16.0); Lymphocytes Absolute Auto 900 /uL (1100-4500); Lymphocytes Percent Auto 14.2 % (25-40); Mean Corpuscular HGB Conc 33.8 % (30-36); Mean Corpuscular Hemoglobin 30.1 PG (26-34); Mean Corpuscular Volume 89.3 fL (80-100); Monocytes Absolute Auto 600 /uL (0-900); Monocytes Percent Auto 8.8 % (3-14); Neutrophils Absolute Auto 4800 /uL (1500-7000); Neutrophils Percent Auto 74.6 % (50-75); Platelet Count 264 X10^3/uL (150-400); Red Blood Cell Count 4.05 X10^6/uL (4.0-5.2); Red Cell Distribution Width 13.2 % (11.6-14.8); White Blood Cell Count 6.5 X10^3/uL (4.5-11.0)
[2023-05-15 14:12] LABS: Hemoglobin A1C% w Est Avg Glu 5.5 % (4.0-6.0)
[2023-05-15 14:22] LABS: Albumin 4.4 g/dL (3.5-5.0); BUN Creatinine Ratio 23.3 (6-22); Blood Urea Nitrogen 21 mg/dL (7-17); Calcium 10.2 mg/dL (8.4-10.2); Carbon Dioxide 28 mmol/L (22-32); Chloride 101 mmol/L (98-107); Estimated Glomerular Filt Rate > 60 mL/min (>60); Glucose 99 mg/dL (80-110); HEMOLYSIS < 15 (0-50); Potassium 4.8 mmol/L (3.4-5.1); Sodium 138 mmol/L (137-145)
[2023-05-15 14:30] LABS: Prealbumin 33.3 mg/dL (17.6-36.0)
== END ==
PROVIDERS: PCP Nurse Practitioner; Referring Provider Orthopaedic Surgery Adult Reconstructive Orthopaedic Surgery; Visit Provider Orthopaedic Surgery Adult Reconstructive Orthopaedic Surgery
DX: Z01.818 Encounter for other preprocedural examination (principal); R77.0 Abnormality of albumin; E55.9 Vitamin D deficiency, unspecified; R73.9 Hyperglycemia, unspecified; Z01.812 Encounter for preprocedural laboratory examination
CPT/HCPCS: 36415; 80048; 82040; 82306; 83036; 84134; 85025; 93005; 93010

== ENCOUNTER → 2023-05-30 13:50 | Outpatient (CLI) | payer OTHER, SELFPAY ==
[2023-01-27 12:01] VITALS: BMI 25.7
--- NOTE | 2023-05-30 | DI.MRI.S_ITS ---
PROCEDURE: MR SHOULDER RT WO CON INDICATIONS: RIGHT SHOULDER ROTATOR CUFF ARTHROPATHY TECHNIQUE: Noncontrast oblique coronal T2 fast spin echo with fat saturation, oblique sagittal T1 spin echo and T2 fast spin echo with fat saturation, axial T1 spin echo and T2 fast spin echo with fat saturation through the shoulder. COMPARISON: None. FINDINGS: Image quality: Excellent. Rotator cuff: There is full-thickness tearing of the mid and posterior supraspinatus tendon, as well as the anterior infraspinatus tendon at the humeral insertion site. There is high-grade intrasubstance and articular surface tearing of the mid and inferior aspect of the subscapularis tendon at the humeral insertion site extending the musculotendinous junction. Low-grade intrasubstance tearing of the anterior supraspinatus as well as the mid and posterior infraspinatus tendon at the humeral insertion site. Teres minor is intact. Supraspinatus and infraspinatus atrophy are present. Bones and bursae: No bone marrow contusions or fractures. Moderate glenohumeral and acromioclavicular joint degeneration. The acromion demonstrates conventional anatomy, without an os acromiale. No pathologic subacromial-subdeltoid or subcoracoid bursal fluid is present. Capsule and soft tissues: Diffuse degenerative fraying of the glenoid labrum is present. Full-thickness biceps tendon tearing is present. The rotator interval appears normal, without fibrosis. The coracohumeral ligament is normal in thickness. IMPRESSION: 1. Partial-thickness and full-thickness tears of the supraspinatus and infraspinatus tendons as described above with associated atrophy. 2. High-grade tearing of the subscapularis tendon. 3. Acromioclavicular and glenohumeral joint osteoarthritis. 4. Biceps tendon tear. Dictated by: Brad Clements M.D. on 06/01/2023 at 9:33 Approved by: Brad Clements M.D. on 06/01/2023 at 9:36
== END ==
LOC: MRI 13:50
PROVIDERS: PCP Nurse Practitioner; Referring Provider Orthopaedic Surgery Adult Reconstructive Orthopaedic Surgery; Visit Provider Orthopaedic Surgery Adult Reconstructive Orthopaedic Surgery
DX: M75.121 Complete rotator cuff tear or rupture of right shoulder, not specified as traumatic (principal); M19.011 Primary osteoarthritis, right shoulder; S46.211A Strain of muscle, fascia and tendon of other parts of biceps, right arm, initial encounter
CPT/HCPCS: 73221

== ENCOUNTER 2023-07-09 12:40 | Day surgery (SDC) | payer OTHER, SELFPAY ==
[2023-01-27 12:01] VITALS: BMI 25.7
[2023-07-01 13:54] VITALS: BMI 25.7
[2023-07-09] VITALS (11 sets, daily range): BP systolic 111–182; BP diastolic 57–85; PULSE 75–92; RESP 16–18; TEMP 35.7–36.8; O2SAT 94–97; BMI 25.7
--- NOTE | 2023-07-09 | DI.RAD.S_ITS ---
PROCEDURE: XR HIP W PEL IF DONE RT 2V INDICATIONS: RIGHT TOTAL HIP TECHNIQUE: AP pelvis and lateral view of the hip acquired. COMPARISON: [facility], [place], XR HIP W PEL IF DONE RT 2V, 07/09/2023, 17:33. [facility], [place], XR HIP W PEL IF DONE LT 2V, 04/04/2021, 13:49. FINDINGS: Bones: Patient is status post right hip arthroplasty, with hardware components in expected positions. The hip joint appears congruent. The visualized bony structures appear intact. Normally aligned left total hip arthroplasty is unchanged. Soft tissues: Overlying postoperative changes are noted. No suspicious soft tissue densities. IMPRESSION: Expected post-operative appearance of a hip arthroplasty. Dictated by: Benjamin Amaya M.D. on 07/10/2023 at 9:12 Approved by: Benjamin Amaya M.D. on 07/10/2023 at 9:12
--- NOTE | 2023-07-09 06:00 | DI.RAD.S_ITS ---
PROCEDURE: XR HIP W PEL IF DONE RT 2V INDICATIONS: GONZALO TECHNIQUE: Fluoroscopic guidance utilized for a right total hip arthroplasty. COMPARISON: None. FINDINGS: Fluoroscopic images submitted for a right total hip arthroplasty. Please see operative note for further discussion. Trial hardware is present. IMPRESSION: Fluoroscopic guidance. Dictated by: Benjamin Amaya M.D. on 07/10/2023 at 9:15 Approved by: Benjamin Amaya M.D. on 07/10/2023 at 9:16
[2023-07-09] MEDS: MELOXICAM 7.5 MG TABLET PO (13:15)
[2023-07-09] MEDS: ACETAMINOPHEN 325 MG TABLET 975 MG PO (13:15)
[2023-07-09] MEDS: LACTATED RINGERS 1,000 ML 42 ML IV ×3 (13:15→18:42)
--- NOTE | 2023-07-09 15:34 | PM.PREOP ---
Pre-operative Note Interval Note History & Physical reviewed/Exam performed by Physician: Yes Changes to H&P: No
[2023-07-09] MEDS: CEFAZOLIN 2 GM/100 ML PREMIX 100 ML IV ×2 (16:35→22:30)
[2023-07-09] MEDS: TRANEXAMIC ACID 1,000 MG VIAL 1000 MG INJ ×2 (16:40→17:05)
--- NOTE | 2023-07-09 17:10 | SUR.OPER ---
Patient supine on padded [place] table, one arm on padded arm board at <90, other arm padded and secured with tape across patient's chest, both legs secured in padded traction boots and positioned per surgeon, padded post at patient's groin, pressure points checked and padded.
[2023-07-09] MEDS: ROPIVACAINE/EPI/CLONIDINE/KET 50 ML SYRINGE INJ (17:23)
[2023-07-09] MEDS: EPINEPHrine 1 MG/10 ML SYRINGE INJ (18:07)
--- NOTE | 2023-07-09 19:04 | P.OP_ITS ---
Operative Date/Time/Diagnoses Date of procedure: 07/09/23 Pre-op diagnosis: Right hip arthritis Post-op diagnosis: same Procedure & Clinicians Procedure: Right total hip arthroplasty Same procedure as scheduled: Yes Surgeon: Husam Cmapbell Business Development Professional: Gurjit Roy Anesthesia Type: General, Spinal and Peripheral nerve block Operative Notes Estimated Blood Loss (mL): 500 Procedure in detail: Right Hybrid Direct Anterior Total Hip Arthroplasty with Uncemented Acetabular Component and Cemented Femoral Component: Implants: * Depuy [place] Gription size 52 cup?with 2 screws * Depuy C Stem femoral stem size 2 standard offset? * 36 mm +1.5 ceramic femoral head? Procedure Summary: This 77-year-old female patient was evaluated for end-stage right hip arthritis refractory to nonoperative management. She utilized a shoe lift on her right side and was hopeful that during a total hip arthroplasty she could have her limb lengthened to match her contralateral side and thereby obviate her need for a shoe lift. Her standing pelvis x-ray showed significant outlet morphology with her pubic symphysis significantly higher than her coccyx. I was unable to completely replicate her standing pelvic alignment with my intraoperative fluoroscopy due to the fluoroscopy unit running into the bed. This caused intraoperative radiographs to appear excessively anteverted however on palpating her cup it was just slightly tucked underneath the anterior wall and I felt that this would appear appropriate on her standing radiograph once it was able to be obtained postoperatively. Two screws were utilized given her poor bone quality, with a DEXA scan T-score of-2.0 in the affected hip. I also utilized a cemented femoral stem for 2 reasons. First, her DEXA score in the right hip. Lynda mancini, intended to use the cement mantle to leave the stem proud to make up additional distance to leave her with equal leg lengths. Following initial trialing I noted that she had appropriate congregational of [place]'s line, canal fill with the broach, offset, and stability. She was still slightly short relative to the contralateral side however. I therefore did not sink the femoral stem to the same level as the broach. I sank it only to the bottom of 3 lines on the femoral stem. Implant guides indicate that this would add an additional 5 mm of length. After placement of that stem I utilized a long cement restrictor to account for fluoroscopic distortion and held this in the x- ray beam to evaluate leg lengths. This indicated that I had successfully equalize her leg lengths to the contralateral side. Manual reduction of the hip was challenging, indicating that it had likely been slightly lengthened relative to its squaxin positioning. Stability was excellent, with no hip instability with 140? of external rotation as well as a 45 degree drop test. Procedure in Detail: This patient was seen preoperatively and evaluated for hip pain which was refractory to numerous nonoperative treatment modalities. Their hip pain correlated with radiographic changes demonstrating significant degeneration in the hip joint. The risks and benefits of continued nonoperative management versus operative management were discussed at length and all of the patient?s questions were answered. Additional educational materials providing further details beyond our discussion in clinic were provided via a publicly available patient education video which included the incidence of medical complications associated with total hip arthroplasty, reasons for revision following total hip arthroplasty, and patient satisfaction rates following total hip arthroplasty. That video can be accessed at [email or web address] . With this understanding of the risks inherent to the procedure, the patient elected to move forward with operative management. Following preoperative optimization, the patient was scheduled for surgery. The patient was met in the preoperative holding area the day of the procedure and all questions were answered. The patient?s nares were swabbed with betadine in order to decolonize them from MRSA. Informed consent was signed and the operative limb was marked with indelible ink.? The patient was brought back to the operating room where anesthesia was induced. The patient was transferred to the [place] table and all bony prominences were padded. The operative site was prepped and draped in the usual sterile fashion. Prior to incision, tranexamic acid and cefazolin were administered. Operative templating images were displayed demonstrating the anticipated implant sizes and correct operative extremity. A timeout procedure was performed verifying the patient?s identity, medical comorbidities, allergies, relevant medications, anesthesia type and the surgical plan. All present were in agreement. The assistance of a physician physical laboratory assistant was required for positioning, room setup, soft tissue retraction and wound closure. Without this assistance, the procedure would have been significantly more challenging and time consuming.?? A direct anterior approach to the hip was utilized. This was performed with a longitudinal incision through a Heuter interval. The incision was planned 2 cm distal and 2 cm lateral to the ASIS extending towards the lateral patella, in line with the muscle body of the TFL. Following incision, the subcutaneous tissue was dissected while taking care to avoid injury to the lateral femoral cutaneous nerve. The fascia overlying the TFL was identified by dissecting off the overlying fat and identifying perforating vessels to the TFL. The TFL fascia was incised and dissected away from the medial border of the TFL. A cobra retr actor was placed over the superior femoral neck between the abductors and the hip capsule and used to reflect the TFL laterally. A Hye self-retainer was then placed in the distal aspect of the wound between the TFL and the rectus femoris. This was tensioned to open up the direct anterior interval and the lateral circumflex vessels were identified and coagulated using electrocautery. The floor of the TFL fascia was incised, exposing the pericapsular fat overlying the hip capsule. A second cobra retractor was placed on the inferior femoral neck. A double-bent soft tissue retractor was placed on the anterior wall of the acetabulum and used to tension the reflected head of rectus femoris, which was then released in order to limit soft tissue tension. A capsulotomy was made in the midline of the anterior hip capsule in line with the femoral neck ending at the vastus tubercle. The double-bent retractor was removed in order to limit the amount of time that a soft tissue retractor remained on the anterior wall and protect the femoral nerve. Tag stitches were placed in the superior and inferior leaflets of the hip capsule. An Jeo soft tissue retractor was introduced over the tag stitches and tensioned in the interval between the rectus femoris and the TFL in order to retract and protect those muscles. The cobra retractors were replaced intracapsularly, with one over the superior neck in the pocket created by the base of the greater trochanter and the other on the femoral head. The capsulotomy was extended laterally to the base of the greater trochanter and medially to the lesser trochanter. This required externally rotating the hip. Once the lesser trochanter had been identified, a neck cut was planned according to measurements from preoperative templating. A ruler was cut at the length measured between the superior aspect of the lesser trochanter and the collar of the prosthesis. This line was extended towards the inferior aspect of the lateral cobra retractor to plan a cut which would leave minimal residual femoral neck laterally. The neck was cut at 60 degrees of external rotation along that line. A second cut was performed to remove a large napkin ring and facilitate head extraction. The napkin ring cut and femoral head were removed.?? A broad anterior wall retractor was placed between the labrum and the anterior capsule so that the anterior capsule would prevent capturing and pinching the femoral nerve anteriorly. An additional retractor was placed on the posterior wall. External rotation and traction were applied through the [place] table so that the cut surface of the femoral neck would not restrict access to the acetabulum. The labrum was excised sharply and the pulvinar was excised with electrocautery to limit bleeding from branches of the obturator artery. Acetabular reamers were selected based on preoperative templating and measurements of the excised femoral head. These were introduced into the acetabulum. Fluoroscopy was utilized to replicate a standing AP pelvis radiograph by centering over the pelvis, rotating until there was appropriate symmetry between the obturator foramen, and introducing caudal tilt to match the position of the pubic symphysis relative to the sacrococcygeal junction according to the patient?s anatomy. Fluoroscopy was utilized to ensure appropriate reaming depth. Once satisfied with the reaming depth corresponding to the preoperative template and the pinch fit between the columns, an appropriate sized acetabular cup was selected which would provide 1 mm of press-fit. This cup was introduced and manipulated until appropriate abduction and anteversion angles were obtained with careful attention to appropriate abduction and anteversion angles as evaluated by the position of the cup relative to the anterior and posterior newsome of the acetabulum and the AP fluoroscopy which recreated the patient?s standing radiograph. The cup was impacted into place. Two screws were placed to provide additional fixation. Peripheral osteophytes were removed. The acetabular liner was then placed with care to ensure locking of the locking mechanism.? Attention was then turned to the femur. All retractors were removed, traction was released, a retractor was placed in the interval between the hip capsule and the gluteus minimus, and the hip was externally rotated to 90 degrees. Traction was applied through the [place] table to tension the lateral capsule and this was released using electrocautery. Traction was released and a [place] hook was placed posteriorly around the proximal femur at the level of the vastus ridge. The table height was lowered in order to restrict the tension on the anterior structures during hip hyperextension to limit the risk of femoral nerve palsy. With traction off and the hip at 90 degrees of external rotation, the hip was hyperextended and adducted while manually elevating the femur away from the acetabulum with the [place] hook to ensure it would not be caught behind the greater trochanter. An asymmetric retractor was placed over the calcar and a broad double-pronged retractor was placed over the greater trochanter. The tag stitch capturing the lateral leaflet of the capsule was moved to the medial side, leaving the conjoined and piriformis tendons isolated in the face of the greater trochanter. The hip was externally rotated and elevated. A release of the conjoined tendon was utilized to protect the femur. The canal was opened with an opening broach and a rasp was used to remove cancellous bone. A rongeur was used to remove the residual lateral bone at the base of the greater trochanter to avoid placing the stem in varus. The femur was then broached to the appropriate sized stem yielding good rotational fit and fill of the canal as well as appropriate version of the stem trial. Neck and head trials were placed, all retractors were removed and the hip was returned to neutral abduction and extension. I then reduced the hip. An AP pelvis fluoroscopic image matching the preoperative standing radiograph was obtained with both lesser trochanters visible and both hips in 40 degrees of external rotation. This demonstrated that the operative side was still short relative to the contralateral side. An AP hip fluoroscopic image was obtained with the hip in neutral rotation which demonstrated good canal fill with the broach and appropriate congregational of [place]'s line. Hip stability was evaluated with 140 degrees of external rotation and a 45 degree drop test which demonstrated no instability. The hip was dislocated and I returned to the broaching position. The canal was irrigated with a canal brush. A cement restrictor was placed. The canal was again irrigated with a canal brush. A whistle tip catheter was placed down the canal. Epinephrine soaked vaginal packing was placed down the canal. The vaginal packing was removed and cement was placed down the canal. The whistletip catheter was then removed. The cement was manually pressurized and then pressurized with the cement gun. The definitive stem was placed and the cement was allowed to dry. Excess cement was removed. Repeat trialing was performed to ensure appropriate head selection following placement of the definitive cemented stem. I returned to the broaching position. The trunnion was cleaned and dried. I placed a ceramic head onto the trunnion and impacted it into place on the Mcintosh taper.??All retractors were removed and the hip was reduced. A dilute mixture of betadine and peroxide was used to bathe the soft tissues during final fluoroscopic assessment. Appropriate component positioning was confirmed on an AP pelvis radiograph with the operative and nonoperative legs in 40 degrees of external rotation, evaluating leg length and offset. Appropriate stem fill was evaluated on an AP hip radiograph with the operative leg in neutral rotation. No fractures were identified on these radiographs. Stability was satisfactory with a 90 degree external rotation test as well as a 45 degree drop test. The hip was copiously irrigated with pulse lavage. The capsule was closed with absorbable interrupted suture. The TFL fascia was closed with barbed suture while carefully protecting the lateral femoral cutaneous nerve from entrapment. A mixture of Ropivacaine, Epinephrine, Clonidine and Toradol was infiltrated throughout the soft tissues. The skin was closed with 2-0 and 3-0 sutures. Surgical glue was applied and a soft dressing was placed.??The sponge, instrument and needle counts were reported as being correct at the end of the case.??No obvious complications occurred. The patient was transferred from the [place] table back to a stretcher. The patient emerged from anesthesia without difficulty and was taken to the PACU in a stable condition.? Plan for aftercare: * Anterior hip precautions * Weightbearing as tolerated * Mobilization as soon as the patient has recovered from anesthesia. If physical therapists are unavailable at the time the patient is ready to ambulate, then nursing staff should help patient ambulate * Aspirin 81 twice per day for DVT prophylaxis * Multimodal pain regimen with no IV opioids ordered * Anticipate discharge home tomorrow * Follow up at [facility] in 2 weeks * Detailed postoperative instructions available at [email or web address]
--- NOTE | 2023-07-09 19:31 | P.PN_ITS ---
Subjective Subjective Interval history: Patient seen postoperatively. Pain is well controlled. Limb lengths feel equal when measured at the medial malleoli. Flexion and extension of the hallux and ankle intact. Mentating appropriately. Normotensive. She will remain inpatient overnight and we will plan for discharge tomorrow Exam Vital Signs (past 8 hours): - 07/09/23 13:17 07/09/23 19:05 07/09/23 19:09 Temperature 98 F 98.2 F Pulse Rate 82 81 78 Respiratory Rate 16 16 16 Blood Pressure 172/85 H 117/57 L 118/64 Pulse Oximetry 97 95 94 Oxygen Delivery Method Room Air Room Air Room Air 07/09/23 19:15 07/09/23 19:27 Temperature 97.7 F Pulse Rate 75 83 Respiratory Rate 18 16 Blood Pressure 111/62 135/71 Pulse Oximetry 96 95 Oxygen Delivery Method Room Air Room Air Oxygen Delivery Method Room Air [facility] Medical History History of COVID-19 (02/2021) Lumbar back pain Annular tear of lumbar disc Lumbar canal stenosis Hypertrophy of ligamentum flavum Right groin pain Right leg pain Aftercare following left hip joint replacement surgery Osteoarthritis Carotid artery disease Cardiomyopathy HLD (hyperlipidemia) Seborrhea capitis in adult Plantar warts (~1959) Eczema (~1952) Osteopenia (~2011) Low back pain (~2011) Mumps Measles Chicken pox Jose's disease (~2010) Hypertension (~2007) Surgical History History of left hip replacement (04/04/21) Hx of tonsillectomy Anesthesia History of hernia surgery (~2009) Family History Father History of heart disease Mother Vascular disease Brother Parkinson's disease Grandmother Cancer Social History household members: spouse Smoking Status: Former smoker alcohol intake: current
[2023-07-09] MEDS: LACTATED RINGERS 1,000 ML 100 ML IV (20:15)
[2023-07-09] MEDS: ACETAMINOPHEN 325 MG TABLET 650 MG PO (20:25)
[2023-07-09] MEDS: carvediloL 12.5 MG TABLET 25 MG PO (20:26)
[2023-07-09] MEDS: IBUPROFEN 600 MG TABLET PO (20:27)
[2023-07-09] MEDS: ASPIRIN EC 81 MG TABLET PO (20:27)
[2023-07-09] MEDS: DOCUSATE 100 MG CAPSULE PO (20:27)
[2023-07-09] MEDS: ATORVASTATIN 20 MG TABLET PO (20:28)
[2023-07-09] MEDS: TRAMADOL 50 MG TABLET PO (21:46)
[2023-07-10] MEDS: IBUPROFEN 600 MG TABLET PO ×3 (02:23→13:07)
[2023-07-10] MEDS: ACETAMINOPHEN 325 MG TABLET 650 MG PO ×3 (02:24→13:06)
[2023-07-10] MEDS: OXYCODONE IR 5 MG TABLET PO ×3 (02:24→12:25)
[2023-07-10 05:05] LABS: Hematocrit 28.5 % (36-46); Hemoglobin 9.7 g/dL (12.0-16.0)
[2023-07-10 06:20] VITALS: BP 146/74; PULSE 88; RESP 16; TEMP 35.9; O2SAT 95
[2023-07-10] MEDS: CEFAZOLIN 2 GM/100 ML PREMIX 100 ML IV (06:25)
[2023-07-10] MEDS: PANTOPRAZOLE DR 20 MG TABLET PO (06:25)
[2023-07-10] MEDS: LACTATED RINGERS 1,000 ML 100 ML IV (06:32)
--- NOTE | 2023-07-10 07:30 | P.DS_ITS ---
History of Present Illness History of Present Illness Date Patient Seen: 07/10/23 Time Patient Seen: 07:30 Chief complaint: SDC Narrative: Operative Date/Time/Diagnoses Date of procedure: 07/09/23 Pre-op diagnosis: Right hip arthritis Post-op diagnosis: same Procedure & Clinicians Procedure: Right total hip arthroplasty Same procedure as scheduled: Yes Surgeon: Husam Campbell Correctional Manager: Gurjit Roy Anesthesia Type: General, Spinal and Peripheral nerve block Operative Notes Estimated Blood Loss (mL): 500 Procedure in detail: Right Hybrid Direct Anterior Total Hip Arthroplasty with Uncemented Acetabular Component and Cemented Femoral Component: Implants: * Depuy [place] Gription size 52 cup?with 2 screws * Depuy C Stem femoral stem size 2 standard offset? * 36 mm +1.5 ceramic femoral head? Discharge Providers Provider Date of admission: 07/09/23 Discharge Date: 07/10/23 Primary care physician: TELLO Crystal Consults: 07/09/23 06:00 Consult to Anesthesiology Routine Comment: Consulting Provider: Anesthesiologist Reason for consultation: Regional block for post operative pain control 07/09/23 19:33 Consult to Discharge Planning Routine Comment: Consult to Occupational Therapy Evaluate & Treat Comment: Physician Instructions: Evaluate and treat Consult to Physical Therapy Evaluate & Treat Comment: Physician Instructions: post op GONZALO protocol Discharge provider: Rajat Garcia PA-C Summary Hospital Course Discharge Diagnosis: Status post right knee arthroplasty Hospital Course: Multi-modal pain control. PT Status at Discharge Cognitive/behavioral status at discharge: oriented Functional status at discharge: uses cane/walker Overall status at discharge: patient is back to baseline Time Spent with Patient Time spent: Less than 30 minutes Exam Vital Signs (past 8 hours): - 07/10/23 06:20 Temperature 96.7 F L Pulse Rate 88 Respiratory Rate 16 Blood Pressure 146/74 H Pulse Oximetry 95 Oxygen Flow Rate 0 Oxygen Delivery Method Room Air Oxygen Flow Rate 0 Narrative Exam Narrative: Patient is found lying comfortably in bed. She has localized pain along the surgical site, which can be controlled with oral medications and ice. No increase pain to palpation along posterior thigh or calf. No warmth or redness noted. Able to dorsiflex and plantarflex against resistance at the ankles bialterally. Sensation grossly intact to light touch. Resp Effort & Inspection: normal respiratory effort and able to speak in complete sentences Objective Labs 07/10/23 04:30 Labs: Laboratory Results - last 24 hr 07/10/23 04:30 Hgb 9.7 L Hct 28.5 L PFSH Medical History History of COVID-19 (02/2021) Lumbar back pain Annular tear of lumbar disc Lumbar canal stenosis Hypertrophy of ligamentum flavum Right groin pain Right leg pain Aftercare following left hip joint replacement surgery Osteoarthritis Carotid artery disease Cardiomyopathy HLD (hyperlipidemia) Seborrhea capitis in adult Plantar warts (~1959) Eczema (~1952) Osteopenia (~2011) Low back pain (~2011) Mumps Measles Chicken pox Jose's disease (~2010) Hypertension (~2007) Surgical History History of left hip replacement (04/04/21) Hx of tonsillectomy Anesthesia History of hernia surgery (~2009) Family History Father History of heart disease Mother Vascular disease Brother Parkinson's disease Grandmother Cancer Social History household members: spouse Smoking Status: Former smoker alcohol intake: current Discharge Assessment & Plan Assessment and Plan Assessment: Status post right hip arthroplasty Plan of Treatment: Discharge home Prescribed oxycodone 5mg q4h prn #30 for pain, mobic 7.5 mg bid for pain/inflammation and zofran 4mg q8hr prn for post operative nausea. Patient may take acetaminopehn 650mg q6hr in conjunction with the mobic for multi-modal pain control with oxycodne 5mg q4hr for break through pain control. ASA 81mg bid for 6 weeks for VTE prophylaxis. Start outpatient PT in 5 to 10 days. Follow up with [facility] in 2 weeks for wound check. Discharge Plan Discharge Plan Patient Disposition: Home Provider Discharge Comment: DC pending PT approval. Discharge orders & Medications Discharge Orders: Discharge (Order); Ordered 07/10/23 Ordered By: Rajat Garcia Prescriptions: New acetaminophen 325 mg Tablet 650 mg PO Q6H PRN (Reason: Pain) Qty: 100 0RF aspirin 81 mg Tablet,Delayed Release (Dr/Ec) 81 mg PO BID Qty: 90 0RF ondansetron 4 mg Tablet,Disintegrating 4 mg PO Q8H PRN (Reason: Nausea) Qty: 10 0RF oxycodone 5 mg Tablet 5 mg PO Q4H PRN (Reason: Pain, Severe (7-10)) Qty: 30 0RF Continued carvedilol 25 mg tablet 25 mg PO Q12H Qty: 180 3RF Rx Instructions: must administer with a meal/food thyroid (pork) [[place] Thyroid] 15 mg tablet 15 mg PO DAILY Qty: 90 3RF thyroid (pork) [[place] Thyroid] 60 mg tablet See Rx Instructions PO DAILY Qty: 90 3RF Rx Instructions: Take one 60mg tablet by mouth daily with 15mg tablet for a total of 75mg daily atorvastatin 20 mg tablet 20 mg PO BEDTIME Qty: 90 3RF Rx Instructions: Take 1 tab at bedtime daily for carotid artery plaque clobetasol 0.05 % solution 1 applic topical .WEEKLY tacrolimus 0.1 % ointment 1 applic topical BID PRN (Reason: Rash) clobetasol 0.05 % cream 1 applic topical DAILY PRN (Reason: eczema hands) omeprazole 20 mg capsule,delayed release(DR/EC) 20 mg PO DAILY Qty: 90 3RF Arcoxia See Rx Instructions .ROUTE .COMPLEX Qty: 90 3RF Rx Instructions: Take 60mg tablet daily as needed; telmisartan 80 mg tablet 80 mg PO QPM calcium carb and citrate-vitD3 [Citracal-D3 Slow Release] 600 mg-12.5 mcg (500 unit) tablet extended release 2 tab PO QAM Rx Instructions: Take 1 tab twice daily for bone health Discontinued acetaminophen 500 mg capsule 1,000 mg PO .am MDD Max 3000 mg a day Qty: 180 0RF aspirin [Adult Aspirin Regimen] 81 mg tablet,delayed release (DR/EC) 81 mg PO DAILY Follow up/Referrals: Loreta Betancourt ARNP [Primary Care Provider] - Diet/Activity/Treatments Diet: Diet as Tolerated Activity: Activity as tolerated. Cold/Heat Therapy: Ice over surgical site as needed for pain relief. Skin/Wound/Dressing Care Report to your healthcare provider any signs of infection, such as:: chills, fever, night sweats, unusual drainage and unusual redness Dressing: May shower. Keep dressing as dry as possible. If dressing becomes wet or dirty, remove and replace with clean, dry gauze. Visit Report/Discharge Packet Instructions: DI for Hip Replacement, How to Prevent Falls, DI for Prescription Opioid Use Stand Alone Forms: Patient Portal/API, Surgery Discharge Discharge Data Primary Care Provider: Loreta Betancourt Attending Provider: Husam Campbell
[2023-07-10 08:59] VITALS: BP 149/76; PULSE 95; RESP 18; TEMP 36.5; O2SAT 96
[2023-07-10] MEDS: polyethylene glycoL 3350 17 GM POWD.PACK PO (09:10)
[2023-07-10] MEDS: ASPIRIN EC 81 MG TABLET PO (09:11)
[2023-07-10] MEDS: DOCUSATE 100 MG CAPSULE PO (09:12)
[2023-07-10] MEDS: CHOLECALCIFEROL (VITAMIN D3) 400 UNIT TABLET 800 UNIT PO (09:19)
[2023-07-10] MEDS: carvediloL 12.5 MG TABLET 25 MG PO (09:19)
[2023-07-10] MEDS: THYROID, PORK 30 MG TABLET 75 MG PO (09:22)
--- NOTE | 2023-07-10 13:16 | PC.NURSE ---
Day shift: Left unit via WC at approx 1315. Paperwork signed and all questions answered. Pt has all personal belongings. Dressing remains CDI. MD scripts sent to Pt's pharmacy by . Pain well controlled per MAY.
--- NOTE | 2023-07-10 15:18 | OT.IP.EVAL ---
Current Diagnoses Unilateral primary osteoarthritis, right hip (07/09/23) Surgery Performed Operation Date: 07/09/23 14:15 Actual Procedures p Total Hip Arthroplasty/Anterior Approach(Right) - Husam Campbell MD Past Medical History (Last Reviewed 07/09/23 @ 12:57 by Chelsey Rosado, RN) Aftercare following left hip joint replacement surgery Annular tear of lumbar disc Cardiomyopathy Carotid artery disease Chicken pox Eczema (~1952) Jose's disease (~2010) History of COVID-19 (02/2021) HLD (hyperlipidemia) Hypertension (~2007) Hypertrophy of ligamentum flavum Low back pain (~2011) Lumbar back pain Lumbar canal stenosis Measles Mumps Osteoarthritis Osteopenia (~2011) Plantar warts (~1959) Right groin pain Right leg pain Seborrhea capitis in adult Surgical History (Last Reviewed 07/09/23 @ 12:58 by Chelsey Rosado, DEDRA) Anesthesia History of hernia surgery (~2009) History of left hip replacement (04/04/21) Hx of tonsillectomy Occupational Therapy Inpatient Evaluation/Re-Eval M1 PT/OT-IP Prior Functional Status Start: 07/10/23 14:55 Freq: NEEDED Status: Active Protocol: Document 07/10/23 10:10 NADIYA (Rec: 07/10/23 15:18 DEBBYWIGEORGINA [id number]) Medical Review Prior Functional Status Medical History Reviewed Yes Diet/Fluid Consistency Regular Communication pt able to communicate her needs Mobility and Gait pt reports ambulating with 4WW prior to sx Activities of Daily Living and IADL's pt was I with BADLs. pt has been needing assist from her spouse for housework, cooking, and driving. Social History Household Members spouse Living Arrangements Apartment/Condo Number of Floors (Floors) One Floor Number of Stairs To Enter/Railing? Pt lives in a three story condo on the first floor. If parking in the parking garage, pt takes an elevator up to the first floor. If parking at the road, pt can ambulate along the sidewalk and step over the threshold into her condo. Home Environment High Toilet,Walk in Shower Home Equipment Front Wheel Walker,Four Wheel Walker,Bedside Commode,Shower Seat with Backrest,Photo Technician Employment Status Retired M2 OT-IP Current Condition Start: 07/10/23 14:55 Freq: Status: Active Protocol: Document 07/10/23 10:10 NADIYA (Rec: 07/10/23 15:18 DEBBYWIGEORGINA [id number]) Occupational Therapy Current Condition Current Condition Evaluation Date 07/10/23 Treatment Diagnosis R GONZALO Diagnosis Onset Date 07/09/23 Post Operative Precautions Anterior Hip Precautions No Hip Extension,No Hip External Rotation Weight Bearing Status Weight Bearing Status Weight Bear as Tolerated M3 OT- IP Subjective and Pain Start: 07/10/23 14:55 Freq: Status: Active Protocol: Document 07/10/23 10:10 NADIYA (Rec: 07/10/23 15:18 [facility] [id number] OT- Subjective Occupational Therapy Visit Type Type Initial Evaluation Visit Start Time 10:10 Visit Stop Time 10:55 Notes Pt reclined in bed on entrance of OT/PT for co-eval. Occupational Therapy Visit Comments Patient Comments Pt reports that her will help her with her dressing when she d/c home. Pt declines education for LB AE. OT Pain Assessment Pain When Pain Assessed During Exercise Pain Present Pain Present Pain Reported Location Right Hip Intensity 4 Scale Used Numeric (0 - 10) Description Shooting Management Techniques Elevation M4 OT- IP ADL's Start: 07/10/23 14:55 Freq: Status: Active Protocol: Document 07/10/23 10:10 NADIYA (Rec: 07/10/23 15:18 DEBBYWIGEORGINA [id number]) OT BXR-[id number]-[id number] General Evaluation Self-Feeding Ability Independent OT ADL-Grooming General Evaluation Grooming Ability Standby Assistance Areas Needing Assistance Retrieving/Set-up of Grooming Items Comments OT Grooming Comments performed sink side with vcs to stand tall. pt has a tendency to forward flex during standing and ambulation OT ADL-Oral Care General Eval Oral Care Ability Standby Assistance Areas of Assistance Retrieving/Set-Up of Items Comments Oral Care Comments performed sink side with vcs to stand tall. pt has a tendency to forward flex during standing and ambulation OT ADL-Dressing General Eval Upper Body Dressing Ability Minimal Assistance Lower Body Dressing Ability Minimal Assistance,Moderate Assistance Areas Needing Assistance Pull-Over Shirt,Underpants/ Brief,Pants/Shorts,Shoes Comments OT Dressing Comments Pt needed min A for UB due to R rotator cuff injury. Pt declined education for LB AE, stating that her will help her with dressing. OT educated pt on dressing operated LE first. OT assist in starting under wear and pants on LEs, pt is able to pull up to her thighs and then once standing to pull up over her hips with SBA for balance . OT ADL-Toileting General Evaluation Toileting Ability Standby Assistance Devices Toileting Assistive Devices Commode,Grab Bars OT ADL-Bathing Comments OT Bathing Comments pt declined to perform during eval M5 OT- IP IADL's Start: 07/10/23 14:55 Freq: Status: Active Protocol: Document 07/10/23 10:10 NADIYA (Rec: 07/10/23 15:18 DEBBYWIGEORGINA [id number]) OT-Instrumental Activities of Daily Living Home Safety Awareness Awareness of Need for Assistance at Home Good Awareness Ability to Problem Solve Emergency Able to Problem Solve Situations Medication Management Medication Management No Deficits Identified Money Management Money Management No Deficits Identified Meal Preparation Meal Preparation Caregiver Provides Assist Lime Sludge Mixer Lime Sludge Mixer Caregiver Provides Assist Driving Driving Caregiver Provides Assist M6 OT- IP Functional Cognition Start: 07/10/23 14:55 Freq: Status: Active Protocol: Document 07/10/23 10:10 NADIYA (Rec: 07/10/23 15:18 DEBBYWIGEORGINA [id number]) Cognitive Factors Limiting Selfcare Function Cognitive Ability Level of Alertness Alert Patient Orientation Name,Age,Birthday,Month,Date, Year,Day of Week,Place, Situation Attention Span Ability Capable of Focused Attention, Capable of Sustained Attention Ability to Follow Commands Able to Follow One Step Commands,Able to Follow Multi- Step Commands Memory Description No Deficits Noted Safety Awareness No Deficits Noted Problem Solving Ability No deficits Noted Executive Function Ability No Deficits Noted Abstract Thinking Ability No Deficits Noted OT- Vision and Hearing OT- Hearing Assessment OT- Hearing Assessment WFL OT- Vision Assessment Visual Acuity WFL,Glasses For Reading M7 OT- IP Mobility and Balance Start: 07/10/23 14:55 Freq: Status: Active Protocol: Document 07/10/23 10:10 NADIYA (Rec: 07/10/23 15:18 DEBBYWIGEORGINA [id number]) OT- Bed Mobility Assessment Supine to Sit Supine to Sit Assist Contact Guard Assistance Scooting Scooting to Edge of Bed Standby Assistance OT-Transfer Assessment Sit to and From Stand Sit to and from Stand Minimal Assistance,Moderate Assistance,1 Person Assistance Transfers Transfer Ability Minimal Assistance,Moderate Assistance,1 Person Assistance Technique Transfer Destination Bed,Chair,Toilet Transfer Technique Stand Step Pivot Devices Transfer Assistive Devices Bed Rail,Gait Belt,Front Wheeled Walker Comments Mobility Comments Pt needs vcs for sequencing, hand placement, and safety awareness during functional t/ fs. Pt needs vcs to stand tall once erect. OT- Gait Assessment Gait Gait Assistance Required: Standby Assistance,Contact Guard Assist Distance (Feet) 40 Assistive Devices Assistive Device Gait Belt,Front Wheeled Walker Comments Gait Ability Comments Pt ambulates throughout her room with vc for how to maintain anterior hip precautions during ambulation and when making turns. Vc reinforced as needed during t/ f to commode and sink side ADLs. Pt verbalizes understanding. Pt needs vcs to stand tall, flexing at hips otherwise. OT- Balance Assessment Sitting Balance and Reactions Static Sitting Balance Ability Good Dynamic Sitting Balance Ability Good Standing Balance and Reactions Static Standing Balance Ability Good Dynamic Standing Balance Ability Fair M8 OT- IP Objective Assessments Start: 07/10/23 14:55 Freq: Status: Active Protocol: Document 07/10/23 10:10 NADIYA (Rec: 07/10/23 15:18 [facility] [id number]) OT Gross Range of Motion Upper Extremity Range of Motion Assessment Right Impaired ROM Impairments R shoulder limited to about 0- 60, otherwise pt is WFL for all joints and mvmts OT Strength Upper Extremity Strength Assessment Within Functional Limits Comments Strength Comments Pt's general UE strength 4/5. Pt's R shoulder was not tested due to R rotator cuff syndrome OT-Muscle Tone Assessment Muscle Tone WNL Yes M9 OT- IP Assessment and Plan Start: 07/10/23 14:55 Freq: Status: Active Protocol: Document 07/10/23 10:10 NADIYA (Rec: 07/10/23 15:18 [facility] [id number]) OT Summary Assessment and Plan Potential Rehabilitation Potential Excellent Analytic Complexity at Evaluation Low Summary OT Impairments Pain,Balance,Functional Mobility,Dressing,Bathing, Toilet Transfers,Shower Transfers,Activity Tolerance Progress Towards Goals Progressing Toward Goals,Goals Met Assessment Summary Pt is 77 yo F s/p R GONZALO anterior approach. Pt was educated on anterior hip precautions and verbalized understanding. Pt demonstrates general understanding during eval with vcs provided as needed. Pt has outpt PT set up upon d/c. Pt would benefit from LB AE education, but repeatedly refused this information. Pt spouse is willing and able to assist pt. Pt demonstrates decreased activity tolerance, balance, functional mobility, and BADLs . Skilled OT services are appropriate to address these deficits for 2-3 days until safe for d/c. Pt was left reclined in bed with all needs met and in reach. Goals Grooming Goal Independent Dressing Goal Contact Guard Assistance, Minimal Assistance Toileting Goal Independent Bathing Goal Minimal Assistance Toilet Transfer Goal Independent Shower Transfer Goal Independent Patient/Caregiver Education Goal Caregiver Independent Assisting Patient Days to Meet Goals 3 Frequency of Treatment Frequency Of Treatment Once a Day Treatment Plan OT Treatment Plan ADL Training,Functional Mobility,Therapeutic Exercises ,Patient/Family Education, Discharge Planning Discharge Recommendations OT Discharge Recommendations Home with Assistance, Outpatient PT Transportation Needs at Discharge Private Vehicle
== END 2023-07-10 13:18 | disposition home or self-care (01) ==
LOC: OR 12:44 → AC 19:18
PROVIDERS: PCP Nurse Practitioner; Referring Provider Orthopaedic Surgery Adult Reconstructive Orthopaedic Surgery; Visit Provider Orthopaedic Surgery Adult Reconstructive Orthopaedic Surgery
PROC: (CPT 27130; principal; 2023-07-09 14:15)
DX: M16.11 Unilateral primary osteoarthritis, right hip (principal)
CPT/HCPCS: 27130; 36415; 73502; 76000; 82962; 85014; 85018; 97165; 97535; C1776; J0171; J0690; J2704; J3010

== ENCOUNTER → 2023-08-25 13:40 | Outpatient (CLI) | payer OTHER, SELFPAY ==
[2023-07-09 20:30] VITALS: BMI 25.7
[2023-08-25 18:52] LABS: Appearance Urine UA CLEAR; Bilirubin Urine UA NEGATIVE (NEGATIVE); Color Urine UA YELLOW; Glucose Urine UA NEGATIVE (Negative); Ketones Urine UA NEGATIVE (NEGATIVE); Leukocyte Esterase Urine UA TRACE (NEGATIVE); Nitrite Urine UA NEGATIVE (Negative); Occult Blood Urine UA NEGATIVE (Negative); Protein Urine UA NEGATIVE (Negative); Specific Gravity Urine UA 1.015 (1.000-1.035); Urobilinogen Urine UA 0.2 E.U./dL (0.2)
[2023-08-25 18:53] LABS: pH Urine UA 7.5 (4.5-8.0)
[2023-08-25 19:45] LABS: Bacteria Urine Few (2-10); Culture Indicated Urine Specimen Cultured; RBC Urine 0-1/HPF (0-5/HPF); Squamous Epithelial Cell Urine 0-1 /HPF (0-5/HPF); Urine Volume 10mL (spun); WBC Urine 5-10/HPF (0-5/HPF)
== END ==
LOC: LAB 13:41
PROVIDERS: PCP Nurse Practitioner; Referring Provider Orthopaedic Surgery Adult Reconstructive Orthopaedic Surgery; Visit Provider Orthopaedic Surgery Adult Reconstructive Orthopaedic Surgery
DX: N39.0 Urinary tract infection, site not specified (principal)
CPT/HCPCS: 81001; 87086

== ENCOUNTER → 2024-01-16 10:57 | Outpatient (CLI) | payer OTHER, SELFPAY ==
[2023-07-09 20:30] VITALS: BMI 25.7
[2024-01-16 12:05] LABS: Add Manual Diff / Slide Review NO; Basophils Absolute Auto 0 /uL (0-100); Basophils Percent Auto 0.9 % (0-2); Eosinophils Absolute Auto 100 /uL (0-450); Eosinophils Percent Auto 2.8 % (2-4); Hematocrit 35.6 % (36-46); Hemoglobin 12.2 g/dL (12.0-16.0); Lymphocytes Absolute Auto 900 /uL (1100-4500); Lymphocytes Percent Auto 19.4 % (25-40); Mean Corpuscular HGB Conc 34.2 % (30-36); Mean Corpuscular Hemoglobin 30.5 PG (26-34); Mean Corpuscular Volume 89.1 fL (80-100); Monocytes Absolute Auto 600 /uL (0-900); Monocytes Percent Auto 13.3 % (3-14); Neutrophils Absolute Auto 3000 /uL (1500-7000); Neutrophils Percent Auto 63.6 % (50-75); Platelet Count 240 X10^3/uL (150-400); Red Cell Distribution Width 13.9 % (11.6-14.8); White Blood Cell Count 4.6 X10^3/uL (4.5-11.0)
[2024-01-16 13:03] LABS: BUN Creatinine Ratio 24.7 (6-22); Blood Urea Nitrogen 21 mg/dL (7-17); Calcium 10.2 mg/dL (8.4-10.2); Carbon Dioxide 25 mmol/L (22-32); Chloride 106 mmol/L (98-107); Cholesterol 146 mg/dL (140-199); Estimated Glomerular Filt Rate > 60 mL/min (>60); Glucose 98 mg/dL (80-110); HDL Cholesterol 85 mg/dL (40-60); HEMOLYSIS < 15 (0-50); LDL Cholesterol Calculated 45 mg/dL (<100); Potassium 4.8 mmol/L (3.4-5.1); Sodium 139 mmol/L (137-145); Triglycerides 79 mg/dL (35-150)
[2024-01-16 13:32] LABS: TSH w/ Reflex to FT4 1.83 uIU/mL (0.47-4.68)
== END ==
PROVIDERS: PCP Nurse Practitioner Family; Referring Provider Nurse Practitioner Family; Visit Provider Nurse Practitioner Family
DX: I42.9 Cardiomyopathy, unspecified (principal); I77.9 Disorder of arteries and arterioles, unspecified; I10 Essential (primary) hypertension; E06.3 Autoimmune thyroiditis
CPT/HCPCS: 36415; 80048; 80061; 84443; 85025

== ENCOUNTER → 2024-07-15 11:54 | Outpatient (CLI) | payer OTHER, SELFPAY ==
[2023-07-09 20:30] VITALS: BMI 25.7
[2024-07-15 13:36] LABS: Free T3, Triiodothyronine Free 4.97 pg/mL (2.77-5.27)
[2024-07-15 13:50] LABS: TSH w/ Reflex to FT4 0.94 uIU/mL (0.47-4.68)
== END ==
LOC: LAB 11:55
PROVIDERS: PCP Nurse Practitioner Family; Referring Provider Nurse Practitioner Family; Visit Provider Nurse Practitioner Family
DX: E06.3 Autoimmune thyroiditis (principal)
CPT/HCPCS: 36415; 84443; 84481

== ENCOUNTER → 2024-07-27 16:05 | Outpatient (CLI) | payer OTHER, SELFPAY ==
[2024-07-27 15:56] VITALS: BMI 25.7
[2024-07-27 16:50] LABS: Add Manual Diff / Slide Review NO; Basophils Absolute Auto 100 /uL (0-100); Basophils Percent Auto 1.1 % (0-2); Eosinophils Absolute Auto 100 /uL (0-450); Eosinophils Percent Auto 1.5 % (2-4); Hematocrit 37.9 % (36-46); Hemoglobin 12.9 g/dL (12.0-16.0); Lymphocytes Absolute Auto 1100 /uL (1100-4500); Lymphocytes Percent Auto 18.4 % (25-40); Mean Corpuscular HGB Conc 34.2 % (30-36); Mean Corpuscular Hemoglobin 30.1 PG (26-34); Mean Corpuscular Volume 88.1 fL (80-100); Monocytes Absolute Auto 700 /uL (0-900); Monocytes Percent Auto 11.5 % (3-14); Neutrophils Absolute Auto 3900 /uL (1500-7000); Neutrophils Percent Auto 67.5 % (50-75); Platelet Count 251 X10^3/uL (150-400); Red Cell Distribution Width 13.6 % (11.6-14.8); White Blood Cell Count 5.7 X10^3/uL (4.5-11.0)
[2024-07-27 17:08] LABS: HEMOLYSIS < 15 (0-50); Iron 87 ug/dL (37-170)
[2024-07-27 17:13] LABS: Alanine Aminotransferase 39 IU/L (<35); Albumin 4.5 g/dL (3.5-5.0); Alkaline Phosphatase 80 U/L (38-126); Aspartate Aminotransferase 32 IU/L (14-36); BUN Creatinine Ratio 32.1 (6-22); Bilirubin Total 0.9 mg/dL (0.2-1.3); Blood Urea Nitrogen 26 mg/dL (7-17); Calcium 10.3 mg/dL (8.4-10.2); Carbon Dioxide 25 mmol/L (22-32); Chloride 105 mmol/L (98-107); Cholesterol 169 mg/dL (140-199); Estimated Glomerular Filt Rate > 60 mL/min (>60); Globulin 2.3 g/dL (1.7-4.1); Glucose 113 mg/dL (70-99); HDL Cholesterol 101 mg/dL (40-60); HEMOLYSIS < 15 (0-50); LDL Cholesterol Calculated 54 mg/dL (<100); Potassium 4.3 mmol/L (3.4-5.1); Sodium 139 mmol/L (137-145); Total Protein 6.8 g/dL (6.3-8.2); Triglycerides 68 mg/dL (35-150)
[2024-07-27 17:21] LABS: Percent Iron Saturation 29 % (15-50); Total Iron Binding Capacity 305 ug/dL (265-497); Transferrin 266 mg/dL (206-381)
[2024-07-27 17:29] LABS: Free T3, Triiodothyronine Free 4.56 pg/mL (2.77-5.27); Free T4, Direct Thyroxine 0.95 ng/dL (0.78-2.19)
[2024-07-27 17:30] LABS: Vitamin D 25 Hydroxy (D3) 38.6 ng/mL (30.0-100.0)
[2024-07-27 17:42] LABS: TSH w/ Reflex to FT4 0.38 uIU/mL (0.47-4.68)
[2024-07-27 17:47] LABS: Ferritin 38 ng/mL (11-264)
[2024-07-27 18:02] LABS: Vitamin B12 559 pg/mL (239-931)
== END ==
PROVIDERS: PCP Nurse Practitioner Family; Referring Provider Nurse Practitioner Family; Visit Provider Nurse Practitioner Family
DX: I10 Essential (primary) hypertension (principal); E06.3 Autoimmune thyroiditis; M85.80 Other specified disorders of bone density and structure, unspecified site; R14.2 Eructation; R53.83 Other fatigue; L65.9 Nonscarring hair loss, unspecified; Z71.1 Person with feared health complaint in whom no diagnosis is made
CPT/HCPCS: 36415; 80053; 80061; 82306; 82607; 82728; 83540; 83550; 84439; 84443; 84481; 85025

== ENCOUNTER → 2024-08-01 18:38 | Outpatient (CLI) | payer OTHER, SELFPAY ==
[2024-07-27 15:56] VITALS: BMI 25.7
--- NOTE | 2024-08-01 18:41 | DI.MRI.S_ITS ---
PROCEDURE: MR LUMBAR SPINE WO CON INDICATIONS: SPONDYLOLISTHESIS TECHNIQUE: Noncontrast sagittal T1 spin echo and T2 fast echo, sagittal STIR, and T2 fast spin echo through the lumbar spine. In cases with scoliosis, additional coronal T2 fast spin echo may be performed. COMPARISON: [facility] [place], [place], XR LUMBAR SPINE 2 OR 3 VIEWS, 08/14/2021, 16:40. Located Within [facility], , MR LUMBAR SPINE WO CON, 09/17/2021, 14:47. FINDINGS: Image quality: Excellent. Alignment and Curvature: There is trace, approximately 3 millimeters of L4-L5 anterolisthesis secondary to facet hypertrophy. Bones: Large Schmorl's node in the superior endplate of the L2 vertebral body. Marrow is of normal overall signal. No acute vertebral body compression fractures. Spinal Cord: Conus medullaris terminates at the L1-2 disc level. Visualized cord demonstrates normal signal and size. Paraspinous Soft Tissues: No paravertebral masses. T12-L1: Normal appearance. L1-L2: Loss of disc signal. Mild to moderate diffuse disc bulge. Mild bilateral facet hypertrophy. Mild narrowing of the central canal. No neural foraminal narrowing. No neural compression. L2-L3: Loss of disc signal. Mild, diffuse disc bulge. [id number] bilateral facet hypertrophy. Mild narrowing of the central canal. Mild bilateral neural foraminal narrowing. No neural compression. L3-L4: Loss of disc signal. Mild, diffuse disc bulge. Mild bilateral facet hypertrophy. Mild ligamentum flavum hypertrophy. Mild to moderate narrowing of the central canal. Mild bilateral neural foraminal narrowing. No neural compression. L4-L5: Loss of disc signal. Mild, diffuse disc bulge. Moderate bilateral facet hypertrophy. Mild ligamentum flavum hypertrophy. Mild to moderate narrowing of the central canal. Mild bilateral neural foraminal narrowing. No neural compression. L5-S1: Loss of disc signal. Mild to moderate diffuse disc bulge. Mild bilateral facet hypertrophy. No central stenosis. Mild no neural foraminal narrowing. No neural compression. IMPRESSION: Multilevel degenerative disc disease. Multilevel facet arthropathy. Grade 1 L4-L5 degenerative spondylolisthesis. No severe central canal stenosis. No severe neural foraminal stenosis. No neural compression. Dictated by: Loretta Jarvis MD, PhD on 08/02/2024 at 9:47 Approved by: Loretta Jarvis MD, PhD on 08/02/2024 at 9:53
== END ==
LOC: MRI 18:40
PROVIDERS: PCP Nurse Practitioner Family; Referring Provider Orthopaedic Surgery Orthopaedic Surgery of the Spine; Visit Provider Orthopaedic Surgery Orthopaedic Surgery of the Spine
DX: M43.16 Spondylolisthesis, lumbar region (principal); M51.369 Other intervertebral disc degeneration, lumbar region without mention of lumbar back pain or lower extremity pain; M51.379 Other intervertebral disc degeneration, lumbosacral region without mention of lumbar back pain or lower extremity pain; M47.816 Spondylosis without myelopathy or radiculopathy, lumbar region; M47.817 Spondylosis without myelopathy or radiculopathy, lumbosacral region
CPT/HCPCS: 72148

== ENCOUNTER → 2024-08-02 14:40 | Outpatient (CLI) | payer OTHER, SELFPAY ==
[2024-07-27 15:56] VITALS: BMI 25.7
== END ==
LOC: LAB 14:41
PROVIDERS: PCP Nurse Practitioner Family; Referring Provider Nurse Practitioner Family; Visit Provider Nurse Practitioner Family
DX: Z12.11 Encounter for screening for malignant neoplasm of colon (principal); I10 Essential (primary) hypertension; E06.3 Autoimmune thyroiditis; M85.80 Other specified disorders of bone density and structure, unspecified site; R14.2 Eructation; R53.83 Other fatigue; L65.9 Nonscarring hair loss, unspecified; Z71.1 Person with feared health complaint in whom no diagnosis is made
CPT/HCPCS: 82274

== ENCOUNTER → 2024-08-09 15:33 | Outpatient (CLI) | payer OTHER, SELFPAY ==
[2024-07-27 15:56] VITALS: BMI 25.7
--- NOTE | 2024-08-09 15:33 | DI.MG.S_ITS ---
MM screening mammo BI: 08/09/2024. BI-RADS: 1 CLINICAL: 78-year old female for bilateral screening mammogram. Tyrer-Cuzick lifetime risk of 2.0%. No personal or first-degree family history of breast cancer. Current reported family history of breast cancer: maternal grandmother and maternal aunt. PRIOR EXAMS 08/12/2021, 08/10/2020. MAMMOGRAPHY TECHNIQUE: 2D and 3D (tomosynthesis) digital mammographic views obtained, with additional images as needed for full coverage. Current study was also evaluated with a Computer Aided Detection (CAD) system. DENSITY A. The breasts are almost entirely fatty. MAMMOGRAPHY FINDINGS Bilateral: No suspicious mass, asymmetry, microcalcification, or other abnormality seen. No significant change from comparison. IMPRESSION: * No evidence of malignancy. RECOMMENDATIONS Bilateral * Annual screening mammography. OVERALL ASSESSMENT CATEGORY BI-RADS-1: Negative. The [employer] recommends annual screening mammography beginning at age 40 for women with average risk of breast cancer. ELECTRONICALLY SIGNED: Ibeth Zarate M.D. on 08/10/2024 at 12:17:10 PM PT Interpreting Station ID: [id number]
== END ==
PROVIDERS: PCP Nurse Practitioner Family; Referring Provider Nurse Practitioner Family; Visit Provider Nurse Practitioner Family
DX: Z12.31 Encounter for screening mammogram for malignant neoplasm of breast (principal); I10 Essential (primary) hypertension; E06.3 Autoimmune thyroiditis; M85.80 Other specified disorders of bone density and structure, unspecified site; R14.2 Eructation; R53.83 Other fatigue; L65.9 Nonscarring hair loss, unspecified; Z71.1 Person with feared health complaint in whom no diagnosis is made; R92.313 Mammographic fatty tissue density, bilateral breasts; Z80.3 Family history of malignant neoplasm of breast
CPT/HCPCS: 77063; 77067

== ENCOUNTER → 2024-08-10 15:15 | Outpatient (CLI) | payer OTHER, SELFPAY ==
[2024-07-27 15:56] VITALS: BMI 25.7
[2024-08-10 16:44] LABS: TSH w/ Reflex to FT4 0.21 uIU/mL (0.47-4.68)
[2024-08-10 17:16] LABS: Free T4, Direct Thyroxine 1.02 ng/dL (0.78-2.19)
[2024-08-11 08:10] LABS: Thyroid Peroxidase Antibodies 279 IU/mL (0-34)
[2024-08-11 17:36] LABS: Anti Thyroglobulin Antibody 203.1 IU/mL (0.0-0.9)
== END ==
LOC: LAB 15:15
PROVIDERS: PCP Nurse Practitioner Family; Referring Provider Nurse Practitioner Family; Visit Provider Nurse Practitioner Family
DX: E03.9 Hypothyroidism, unspecified (principal)
CPT/HCPCS: 36415; 84439; 84443; 86376; 86800

== ENCOUNTER → 2024-09-16 13:03 | Outpatient (CLI) | payer OTHER, SELFPAY ==
[2024-07-27 15:56] VITALS: BMI 25.7
[2024-09-16 15:04] LABS: Folate 8.6 ng/mL (2.76-20.0)
== END ==
PROVIDERS: PCP Nurse Practitioner Family; Referring Provider Nurse Practitioner Family; Visit Provider Nurse Practitioner Family
DX: R41.3 Other amnesia (principal)
CPT/HCPCS: 36415; 82746

== ENCOUNTER → 2024-09-23 15:26 | Outpatient (CLI) | payer OTHER, SELFPAY ==
[2024-07-27 15:56] VITALS: BMI 25.7
--- NOTE | 2024-09-23 15:36 | DI.RAD.S_ITS ---
PROCEDURE: XR LUMBAR SPINE 2-3V INDICATIONS: LOWER BACK PAIN TECHNIQUE: 3 views of the lumbar spine were acquired. COMPARISON: None. FINDINGS: Bones: 5 [id number] vertebrae are present. There is normal bony alignment. No vertebral body compression fractures. No suspicious bony lesions. Para incidental bilateral arthroplasty in good position Soft tissues: Overlying bowel gas pattern is normal. No suspicious soft tissue calcifications. IMPRESSION: Osteopenia without fracture or malalignment Approved by: Husam Umaña M.D. on 09/23/2024 at 18:56
[2024-09-23 17:13] LABS: Add Manual Diff / Slide Review NO; Basophils Absolute Auto 100 /uL (0-100); Basophils Percent Auto 0.9 % (0-2); Eosinophils Absolute Auto 100 /uL (0-450); Eosinophils Percent Auto 1.4 % (2-4); Hematocrit 39.1 % (36-46); Hemoglobin 13.2 g/dL (12.0-16.0); Lymphocytes Absolute Auto 1100 /uL (1100-4500); Lymphocytes Percent Auto 17.2 % (25-40); Mean Corpuscular HGB Conc 33.6 % (30-36); Mean Corpuscular Hemoglobin 30.3 PG (26-34); Monocytes Absolute Auto 700 /uL (0-900); Monocytes Percent Auto 10.9 % (3-14); Neutrophils Absolute Auto 4500 /uL (1500-7000); Neutrophils Percent Auto 69.6 % (50-75); Platelet Count 261 X10^3/uL (150-400); Red Blood Cell Count 4.35 X10^6/uL (4.0-5.2); White Blood Cell Count 6.4 X10^3/uL (4.5-11.0)
[2024-09-23 17:41] LABS: C-Reactive Protein Quant < 0.5 mg/dL (<1.0)
[2024-09-23 17:55] LABS: Erythrocyte Sedimentation Rate 8 MM/HR (0-20)
[2024-09-23 18:10] LABS: TSH w/ Reflex to FT4 3.53 uIU/mL (0.47-4.68)
== END ==
PROVIDERS: PCP Nurse Practitioner Family; Referring Provider Nurse Practitioner Family; Visit Provider Nurse Practitioner Family
DX: M85.88 Other specified disorders of bone density and structure, other site (principal); M54.50 Low back pain, unspecified; E06.3 Autoimmune thyroiditis
CPT/HCPCS: 36415; 72100; 84443; 85025; 85651; 86140

== ENCOUNTER → 2024-10-26 14:42 | Outpatient (CLI) | payer OTHER, SELFPAY ==
[2024-07-27 15:56] VITALS: BMI 25.7
--- NOTE | 2024-10-26 14:44 | DI.RAD.S_ITS ---
PROCEDURE: XR ELBOW LT MIN 3V INDICATIONS: Left elbow swollen painful; fell one year ago TECHNIQUE: 3 views of the elbow were acquired. COMPARISON: None. FINDINGS: Bones: There are no osseous abnormalities. Elbow joint: Normal in width and alignment without arthritic change. There are no effusions. Soft tissues: No soft tissue swelling, calcification or mass. IMPRESSION: Normal elbow Dictated by: Raúl Rico M.D. on 10/27/2024 at 12:24 Approved by: Raúl Rico M.D. on 10/27/2024 at 12:24
[2024-10-26 16:08] LABS: TSH w/ Reflex to FT4 3.39 uIU/mL (0.47-4.68)
== END ==
PROVIDERS: PCP Nurse Practitioner Family; Referring Provider Physician Assistant; Visit Provider Physician Assistant
DX: M25.522 Pain in left elbow (principal); E06.3 Autoimmune thyroiditis
CPT/HCPCS: 73080; 84443

== ENCOUNTER 2025-01-03 15:46 | Emergency (ER) | payer OTHER, SELFPAY ==
[2024-11-25 14:24] VITALS: BMI 25.7
[2025-01-03 16:02] VITALS: BP 172/83; PULSE 88; RESP 20; TEMP 36.7; O2SAT 96; BMI 24.4
--- NOTE | 2025-01-03 17:44 | PC.NURSE ---
Patient signed VDC paperwork with courtroom clerk.
--- NOTE | 2025-01-03 23:26 | ED.BACK ---
HPI - Back Pain/Injury General Chief Complaint: Back Pain/Injury Stated Complaint: WIC ref lower back pain Time Seen by Provider: 01/03/25 17:44 Source: patient Related Data Home Medications ?Medication ?Instructions ?Recorded ?Confirmed clobetasol 0.05 % scalp solution 1 applic topical .WEEKLY 01/27/23 12/01/24 aspirin 81 mg tablet,delayed 81 mg PO DAILY 10/26/24 12/01/24 release diclofenac sodium 1 % topical gel 4 g topical QID 10/26/24 12/01/24 (Voltaren Arthritis Pain) lidocaine 4 % topical patch 1 patch topical DAILY PRN 10/26/24 12/01/24 (Salonpas (lidocaine)) Previous Rx's ?Medication ?Instructions ?Recorded 4-Pronged Cane #1 ea 10/19/23 carvedilol 25 mg tablet 25 mg PO Q12H #180 tabs 03/07/24 telmisartan 80 mg tablet 80 mg PO QPM #90 tabs 04/14/24 atorvastatin 20 mg tablet 20 mg PO BEDTIME #90 tabs 04/15/24 tacrolimus 0.1 % topical ointment 1 applic topical BID PRN Rash #60 07/14/24 grams naproxen 500 mg tablet 500 mg PO BID PRN pain #20 tabs 09/23/24 thyroid (pork) 60 mg tablet See Rx Instructions PO DAILY #90 09/23/24 ([place] Thyroid) tabs tramadol 25 mg tablet 25 mg PO Q6H PRN pain #120 tabs 12/13/24 clobetasol 0.05 % topical cream 1 applic topical DAILY PRN eczema 01/03/25 hands #30 grams Allergies Allergy/AdvReac Type Severity Reaction Status Date / Time No Known Drug Allergies Allergy Verified 12/01/24 15:18 Patient History Medical History (Updated 01/03/25 @ 17:46 by Suzanne Mustafa RN) Olecranon bursitis of left elbow Mild cognitive impairment Constipation Umbilical hernia without obstruction and without gangrene GERD (gastroesophageal reflux disease) History of COVID-19 (02/2021) Lumbar back pain Annular tear of lumbar disc Lumbar canal stenosis Hypertrophy of ligamentum flavum Right groin pain Right leg pain Aftercare following left hip joint replacement surgery Osteoarthritis Carotid artery disease Cardiomyopathy HLD (hyperlipidemia) Seborrhea capitis in adult Plantar warts (~1960) Eczema (~1952) Osteopenia (~2011) Low back pain (~2011) Mumps Measles Chicken pox Jose's disease (~2010) Hypertension (~2007) Surgical History History of left hip replacement (04/04/21) Hx of tonsillectomy Anesthesia History of hernia surgery (~2009) Family History Father History of heart disease Mother Vascular disease Brother Parkinson's disease Grandmother Cancer Social History household members: spouse Smoking Status: Never smoker alcohol intake: current Smoking Status: Never smoker alcohol intake frequency: 0-2 drinks per day Alcohol type: wine Exam Initial Vital Signs Initial Vital Signs: Vital Signs Temperature 98.0 F 01/03/25 16:02 Pulse Rate 88 01/03/25 16:02 Respiratory Rate 20 01/03/25 16:02 Blood Pressure 172/83 H 01/03/25 16:02 Pulse Oximetry 96 01/03/25 16:02 Oxygen Delivery Method Room Air 01/03/25 16:02 Course Vital Signs Vital signs: Vital Signs - 8 hr 01/03/25 16:02 Temperature 98.0 F Pulse Rate 88 Respiratory Rate 20 Blood Pressure 172/83 H Pulse Oximetry 96 Oxygen Delivery Method Room Air Discharge Plan Departure Patient Disposition: Left Without Being Seen Clinical Impression: Patient left without being seen Prescriptions: No Action carvedilol 25 mg tablet 25 mg PO Q12H Qty: 180 3RF Rx Instructions: must administer with a meal/food telmisartan 80 mg tablet 80 mg PO QPM Qty: 90 3RF atorvastatin 20 mg tablet 20 mg PO BEDTIME Qty: 90 3RF Rx Instructions: Take 1 tab at bedtime daily for carotid artery plaque thyroid (pork) [[place] Thyroid] 60 mg tablet See Rx Instructions PO DAILY Qty: 90 3RF Rx Instructions: Take one 60mg tablet by mouth daily tramadol 25 mg tablet 25 mg PO Q6H PRN (Reason: pain) Qty: 120 0RF clobetasol 0.05 % cream 1 applic topical DAILY PRN (Reason: eczema hands) Qty: 30 0RF lidocaine [Salonpas (lidocaine)] 4 % adhesive patch,medicated 1 patch topical DAILY PRN diclofenac sodium [Voltaren Arthritis Pain] 1 % gel 4 g topical QID Rx Instructions: apply to single elbow, wrist or hand; for hand includes palm/fingers/back of hand aspirin 81 mg tablet,delayed release (DR/EC) 81 mg PO DAILY clobetasol 0.05 % solution 1 applic topical .WEEKLY (DME) 4-Pronged Cane See Rx Instructions .Route .MEDSUPPLY Qty: 1 0RF Rx Instructions: Use for balance and stability tacrolimus 0.1 % ointment 1 applic topical BID PRN (Reason: Rash) Qty: 60 0RF Rx Instructions: Apply to effected areas naproxen 500 mg tablet 500 mg PO BID PRN (Reason: pain) Qty: 20 0RF
== END 2025-01-03 17:46 | disposition left against medical advice (07) ==
PROVIDERS: Emergency Provider Emergency Medicine; PCP Nurse Practitioner Family
CPT/HCPCS: 99281

== ENCOUNTER → 2025-02-03 12:38 | Outpatient (CLI) | payer OTHER, SELFPAY ==
[2024-11-25 14:24] VITALS: BMI 25.7
--- NOTE | 2025-02-03 12:39 | DI.MRI.S_ITS ---
PROCEDURE: MR LUMBAR SPINE WO CON
== END ==
LOC: MRI 12:38
PROVIDERS: PCP Nurse Practitioner Family; Referring Provider Nurse Practitioner Family; Visit Provider Physical Medicine & Rehabilitation
DX: M81.0 Age-related osteoporosis without current pathological fracture (principal); M43.16 Spondylolisthesis, lumbar region; M47.816 Spondylosis without myelopathy or radiculopathy, lumbar region; M48.061 Spinal stenosis, lumbar region without neurogenic claudication; G12.9 Spinal muscular atrophy, unspecified; M54.50 Low back pain, unspecified; M43.8X6 Other specified deforming dorsopathies, lumbar region
CPT/HCPCS: 72100; 72148